=== PATIENT | female | born 1990 | race Caucasian/White ===

== ENCOUNTER 2024-04-27 08:37 | Outpatient (REF) | payer OTHER, SELFPAY | END 2024-04-27 08:38 | disposition home or self-care (01) | LOC: HO.HOSX 08:37 | PROVIDERS: Visit Provider Physician Assistant | DX: Z13.89 Encounter for screening for other disorder (principal) ==

== ENCOUNTER 2024-05-23 08:10 | Outpatient (REF) | payer OTHER, SELFPAY ==
--- OUTSIDE RECORDS SUMMARY | 2024-05-24 08:13 | XMS_ITS | Clinical Summary ---
Author Organization [address] [place] [address] Address [address] [place] [address] Phone Care Team Providers Care Shuttle Inspector Name Role Phone Chris Lindsey MD Primary Care Provider [phone] Allergies Active Allergy Reactions Criticality Noted Date Comments Latex 04/29/2024 Sulfa (Sulfonamide Antibiotics) 04/20 Medications Hospital, Clinic, or Other Facility Administered Medication Ordered Dose Route Frequency Start Date End Date Status lidocaine (PF) (XYLOCAINE-MPF) 1 % injection 0.5 mLIndications:Planta r fasciitis .5 mL inj Once PRN Procedure 04/29/2024 04/29/2024 Ended triamcinolone acetonide (KENALOG-40) 40 mg/mL injection 40 mgIndications:Planta r fasciitis 40 mg IAtc Once PRN Procedure 04/29/2024 04/29/2024 Ended Encounters Date Type Department Care Team Description 04/29/2024 11:00 AM EST Consult Orthopedic Surgery - [place] [address] [place] [phone] Earnest Leung DPM Pain in both feet (Primary Dx); Pes planus of both feet; Equinus contracture of left ankle; Plantar fasciitis from Last 3 Months Social History Tobacco Use Types Packs/Day Years Used Date Smoking Tobacco: Never Assessed Sex and Gender Information Value Date Recorded Sex Assigned at Not on file Gender Identity Not on file Sexual Orientation Not on file Job Start Date Occupation Industry Not on file Not on file Not on file Last Filed Vital Signs Vital Sign Reading Time Taken Comments Blood Pressure - - Pulse - - Temperature - - Respiratory Rate - - Oxygen Saturation - - Inhaled Oxygen Concentration - - Weight 102 kg (225 lb) 04/29/2024 11:06 AM EST Height 154.9 cm (5' 1 ) 04/29/2024 11:06 AM EST Body Mass Index 42.51 04/29/2024 11:06 AM EST Plan of Treatment Health Maintenance Due Date Last Done Comments DTaP,Tdap,and Td Vaccines (1 - Tdap) 07/23/2010 Hepatitis B Vaccines (1 of 3 - 19+ 3-dose series) 07/23/2010 Cervical Cancer Screening: P ap Smear 07/23/2012 COVID-19 Vaccine ( - 2023-2 5 season) 2023 Influenza Vaccine (#1) 2023 Depression Screening 04/04/2024 HIV Screening 04/04/2024 Hepatitis C Screening 04/04/2024 Social Influencers of Health Screening 04/04/2024 HIB Vaccines Aged Out No longer eligi ble based on patient's age to complete this topic HPV Vaccines Aged Out No longer eligi ble based on patient's age to complete this topic Hepatitis A Vaccines Aged Out No long er eligible based on patient's age to complete this topic IPV Vaccines Aged Out No longer eligi ble based on patient's age to complete this topic MMR Vaccines Aged Out No longer eligi ble based on patient's age to complete this topic Meningococcal ACWY Vaccine Aged Out N o longer eligible based on patient's age to complete this topic Pneumococcal Vaccine: Pediat rics (0 to 5 Years) and At-Risk Patients (6 to 64 Years) Aged Out No longer eligible b ased on patient's age to complete this topic RSV Immunization Patients Un thomas 20 months Aged Out No longer eligible b ased on patient's age to complete this topic Varicella Vaccines Aged Out No longer eligible based on patient's age to complete this topic Procedures Procedure Name Priority Date/Time Associated Diagnosis Comments INJECTION TENDON OR LIGAMENT Routine 04/29/2024 11:00 AM EST Plantar fasciitis from Last 3 Months Results * Injection tendon or ligament (04/29/2024 11:00 AM EST) Narrative Earnest Leung DPM - 04/29/2024 11:00 AM EST Earnest Leung DPM ? 04/29/2024 ??6:33 PM Injection tendon or ligament Indications: pain Details: 25 G needle Medications: 0.5 mL lidocaine (PF) 1 %; 40 mg triamcinolone acetonide 40 mg/mL Informed Consent: ??Laterality: ??Bilateral Earnest Leung DPM IN CLINIC/BEDSIDE O RDERABLES from Last 3 Months Care Teams Shuttle Inspector Relationship Specialty Start Date End Date Chris Lindsey MD [address] [place] [address] Dr Coleen [place] PCP - General Family Medicine 04/04/24
--- OUTSIDE RECORDS SUMMARY | 2024-05-24 08:13 | XMS_ITS | Data Portability ---
Author Organization YOLIE Peng s, [address] Address [address] [place] [address] Assessment No assessment recorded. Plan of Treatment Reminders Order Date Submit Date Provider Last Modified By Organization Details Last Modified Time Details Appointments None recorded. Lab rapid strep group A, throat 2022 023 [email or web address] [facility], [address] [place] [address], [phone], 3 12:35:14 rapid strep group A, throat 2022 023 [email or web address] 247 _[facility], [address] [place] [address], [phone], 3 11:42:27 streptococc us group A, culture, throat [address] [facility], [address] [place] [address], [place], [address], 3 08:09:20 Referral None recorded. Procedures None recorded. Surgeries None recorded. Imaging None recorded. Medication Orders prednisone 10 mg tablet 2022 023 [email or web address] [facility] #[id number], [address] [place] [address], [id number], 3 10:34:21 ProAir HFA 90 mcg/actuati on aerosol inhaler 2022 023 [facility], [address] [place], [place], [id number], 3 12:35:28 amoxicillin 500 mg capsule 2022 023 [email or web address] [facility] #72860, [address] [place], [place], [id number], 3 10:34:26 prednisone 20 mg tablet 2022 023 YFN [facility] #37338, [address], [place], [id number], 3 11:44:14 Patient TargetsNo targets recorded. Patient Instructions Encounter Date Encounter Id Patient Instructions Last Modified By Organization Details Last Modified Time 05/27/2022 [id number] Acute bronchitis is a common clinical condition characterized by an acute onset but persistent cough, with or without sputum production. It is typically self-limited, resolving within one to three weeks. Symptoms result from inflammation of the lower respiratory tract and are most frequently due to viral infection. Treatment is focused on patient education and supportive care. Antibiotics are not needed for the great majority of patients with acute bronchitis but are greatly overused for this condition. Reducing antibiotic use for acute bronchitis is a national and international health care priority. In most patients, the cough persists for 1 to 3 weeks, with a average duration of 18 days. The cough may be associated with either purulent or nonpurulent sputum production The presence of purulent sputum is a nonspecific finding and does not appear to be predictive of bacterial infection or that antibiotics are needed. For the great majority of patients, use of antibiotics does not hasten recovery or prevent complications but puts patients at increased risk of adverse effects including potentially severe complications such as Clostridioides difficile infection and anaphylaxis. Non-Pharmacological treatment for coughin. Throat lozenges 2. Hot tea 3. Honey 4. Smoking cessation 5. Avoidance of secondhand smoke. Pharmacological Treatment: 1. Robatussin or Guafenasin 2. Antihistamines 3. Dextromethoraphen I would plan on being seen again if any of the following symptoms develop: 1. Fever (100.5) 2. Shortness of breath 3. Wheezing 4. Worsening Cough. I would go to the ER if you develop: 1. Severe Shortness of breath 2. Chest Pain 3. Wheezing 4. Coughing up Blood [email or web address] Not available 05/27/2022 12:35:13 09/28/2022 [id number] sore throat: car e instructions [email or web address] Not available 09/28/2022 11:42:28 Reason for Referral None Reported. Results Created Date Observation Date Name Description Value Unit Range Abnormal Flag Note LastModifiedBy Organization Detail LastModifiedTime 05/27/1905/27/2022 rapid strep group A, throa t Unknown Analyte Normal = Negati ve Not Available [address] [place], [place] [address] [place], [phone], 05/27/2022 12:09:08 05/27/1905/27/2022 rapid strep group A, throa t Unknown Analyte negati ve Not Available [address] [place], [place] [address], [address], 05/27/2022 12:09:08 09/29/19 23 10/01/2022 BETA STREP GP A CULTU RE beta strep gp A culture NEGATI VE Refer ence Range : Negat connor Not Available [facility] ([facility]) [address] [facility], [place], [address], 10/01/2022 08:09:19 09/29/19 23 09/28/2022 rapid strep group A, throa t Unknown Analyte negati ve Not Available [address] [place] [address], [phone], 09/28/2022 10:35:09 09/29/19 23 09/28/2022 rapid strep group A, throa t Unknown Analyte Normal = Negati ve Not Available [address] [place], [place] [address], [address], 09/28/2022 10:35:09 Result Notes None recorded. Problems Name Problem SNOMED Code Status Onset Date Resolution Date Notes Provider Name and Address Organization Details Recorded Time Gastroesophage al reflux disease 850920296 Active 2022 YOLIE Adler [facility] 3 12:11:29 Problem Notes None recorded. Medical Equipment None Reported. Allergies Allergen ID Allergen Name Allergen Category Reaction Reaction Severity Criticality Documentation Date Start Date Code Code System Note Provider Name and Address Organization Details Recorded Time 755343 Substance with sulfonami de structure and antibacte rial mechanism of action (substanc e) medicatio n Not available Not available Not available 05/27/2022 93404 8003 SNOMED unkno wn react ion YOLEI Adler [facility] 3 12:10:08 681225 latex environme nt,medica tion rash Not available Not available 05/27/2022 61085 91 RxNorm YOLIE Adler [facility] 3 12:10:19 Medications Name Sig Start Date Stop Date Status Note LastModified by Organization Details LastModified Time amoxicillin 500 mg capsule TAKE 1 CAPSULE BY MOUTH THREE TIMES DAILY FOR 10 DAYS 09/28 completed Not Available Not Available Not Available prednisone 10 mg tablet TAKE 3 TABLETS BY MOUTH EVERY DAY FOR 2 DAYS THEN TAKE 2 TABLETS BY MOUTH EVERY DAY FOR 2 DAYS THEN TAKE 1 TABLET BY MOUTH EVERY DAY FOR 2 DAYS 09/28 completed Not Available Not Available Not Available benzonatate 200 mg capsule TAKE 1 CAPSULE BY MOUTH THREE TIMES DAILY FOR 7 DAYS NEEDED FOR COUGH 05/27 completed Not Available Not Available Not Available prednisone 20 mg tablet Take 3 tablets every day by oral route for 5 days. 2022 active Not Available Not Available Not Avai lable aspirin 81 mg tablet,chelsey yed release TAKE 2 TABLETS BY MOUTH DAILY 09/28 completed Not Available Not Available Not Available famotidine 20 mg tablet TAKE 1 TABLET BY MOUTH TWICE DAILY 09/28 completed Not Available Not Available Not Available Proventil HFA 90 mcg/actuati on aerosol inhaler INHALE 2 PUFFS BY MOUTH EVERY 4 HOURS active Not Available Not Available No t Available ondansetron 4 mg disintegrat ing tablet DISSOLVE 1 TABLET ON THE TONGUE EVERY 8 HOURS FOR 3 DAYS NEEDED FOR NAUSEA OR VOMITING 05/27 completed Not Available Not Available Not Available fluticasone propionate 50 mcg/actuati on nasal spray,suspe nsion SHAKE LIQUID AND USE 1 SPRAY IN EACH NOSTRIL TWICE DAILY FOR ALLERGY SYMPTOMS 05/27 completed Not Available Not Available Not Available BinaxNOW COVID-19 Ag Self Test kit TEST DIRECTED TODAY 05/27 completed Not Available Not Available Not Available Vitals Date Recorded Body height Body mass index (BMI) Body weight Pain severity Huerta-Augustin FACES pain rating scale Respiratory rate Oxygen saturation Oxygen saturation in Arterial blood by Pulse oximetry Heart rate Body temperature Systolic blood pressure Diastolic blood pressure Provider Name and Address Organization Details Last Updated DateTime 3 152.4 cm 39.1 kg/m2 79817.4 7 g 8 17 /min 100 % 100 % 78 /min 98.3 [degF] 129 mm[Hg] 86 mm[Hg] RUBI CASEY [facility] 3 10:36:40 Date Recorded Body height Body mass index (BMI) Body weight Pain severity - 0-10 verbal numeric rating [Score] - Reported Respiratory rate Oxygen saturation Oxygen saturation in Arterial blood by Pulse oximetry Heart rate Body temperature Systolic blood pressure Diastolic blood pressure Provider Name and Address Organization Details Last Updated DateTime 3 152.4 cm 40 kg/m2 05093.4 4 g 8 20 /min 97 % 97 % 98 /min 97.5 [degF] 135 mm[Hg] 73 mm[Hg] RUBI CASEY [facility] 3 12:14:09 Social History Question Answer Notes LastModified by Organizat ion Details LastModified Time Tobacco Smoking Status Current Every Day Smoker RUBI macdonald [place] [facility] 05/27/2022 12:11:55 What Is Your Level Of Alcohol Consumption? None Information not available 05/27/2022 Which Illicit Or Recreational Drugs Have You Used? Marijuana [email or web address] Information not available 09/28/2022 How Much Tobacco Do You Smoke? 0.25 PPD [email or web address] Information not available 05/27/2022 Do You Use Any Illicit Or Recreational Drugs? Yes [email or web address] Information not available 09/28/2022 Have You Recently Traveled Abroad? No [email or web address] Information not available 05/27/2022 Do You Or Have You Ever Used Any Other Forms Of Tobacco Or Nicotine? No [email or web address] Information not available 05/27/2022 Sex: Unknown Functional Status None recorded. Mental Status None recorded. Family History Relationship Description Onset Age of this Age Resolved Age Notes LastModified by Organization Details LastModified Time Father No current problems or disability [email or web address] Not available 05/27 12:11:31 Mother No current problems or disability [email or web address] Not available 05/27 12:11:31 Medical History No medical history recorded. Gynecological History Statement/Question Response Date of LMP Is there any chance of ? No Obstetrics History GPAL:G 0 P 0 0 0 0 Past Encounters Encounter ID Performer Location Encounter Start Date Encounter Closed Date Diagnosis/Indication Diagnosis SNOMED-CT Code Diagnosis ICD10 Code Diagnosis Note [id number] [address] [place] [address] 04/03/2021 14:32:32 04/03/2021 16:49:30 [id number] [address] [address] [place] [address] 10/01/2021 13:00:01 10/01/2021 16:46:34 [id number] [address] [place] [address] 09/20/2020 18:06:16 09/20/2020 19:49:44 [id number] [address] [place] [address] 04/20/2021 13:01:43 04/20/2021 14:17:30 [id number] [address] [place] [address] 09/28/2020 09:25:23 09/28/2020 10:50:45 [id number] [address] [place] [address] 07/10/2020 18:01:41 07/10/2020 18:42:10 [id number] [address] [place] [address] 01/14/2021 08:13:15 01/14/2021 09:49:55 [id number] YOLIE GUADALUPE [address] [place] [address] 05/27/2022 12:03:04 05/27/2022 12:37:33 Acute pharyngitis 691389445 J02.9 Laryngitis 88379630 J04. 0 Wheezing [id number] R06.2 [id number] ANAYA CARLSON MD [address] [place] [address] 09/28/2022 09:31:53 09/28/2022 11:49:39 Sore throat 000686732 J02.9 Sore throatClea r liquids for comfortFre sh Carla Root Tea-Cut up fresh carla root and boil it till fragrant. drink the liquid as a tea. Can add Honey to taste. Also For Sore Throat:Thr oat Comfort Tea (by [employer])Thro at Coat Tea ( by [employer] ) Clear broth soup: Vegetable, Chicken or Beef as tolerated. Salt Water GarglesMix 1 teaspoonfu l of salt in a glass of warm water. Gargle and spit out the salt water mixture one mouthful at a time until the glass is empty. Repeat 4 times daily. Acute laryngitis 3418905 J04.0 Health Concerns Section Related Observation LastModified by Organization Detai ls LastModified Time None Recorded Concern Status LastModified by Organization Details LastModified Time None Recorded Advance Directives Directive None Recorded Payers Encounter Date Sequence Insurance Name Policy Number Policy [place] Covered Member ID [place] Member ID Guarantor Name 04/03/[address] [facility] [id number] Hannah Colatriano [id number] Hannah Colatriano 04/20/[address] [facility] [id number] Hannah Colatriano [id number] Hannah Colatriano 10/01/[address] [facility] [id number] Hannah Colatriano [id number] Hannah Colatriano 05/27/[address] [facility]ICA[facility] [id number] Hannah Colfernandoiano [id number] Hannah Colatriano 09/28/[address] [place] [address] - [facility] (MEDICAID HMO) [id number] Hannah Colfernandoiano [id number] Hannah Quickiano Notes Date Note Type Note Provider Name and Address Organization Details Recorded Time 3 text/html Sore throatReported bypatient.Source of patient informationInformation obtained from patient; Patient arrived at Urgent Care ambulatory Location:throat; chest Severity:moderate Quality:dull Onset/Timing:days; 2 weeks Associated Symptoms:no sputum production; no shortness of breath; no sinus pain; no vomiting; no nausea;sore throat;hoarseness;coughing Context:no sick contactsNotes:The patient is 2 weeks of congestion and sore throat. started coughing violently last few days. Vomited today due to the cough. The patient denies any history of asthma. No shortness of breath. no chest pain. YOLIE GUADALUPE [address] [place], [address], [employer] [facility] 05/27/2022 12:47:52 3 text/html 32 yo female presents with 4day hx of sore throat with no relief from ibuprofen, She has 4 sons ages 9y, 8y, 2y, and 2mos old. All with various stages of URIs over the last 2 months. None testing positive for Strep recently. ANAYA CARLSON MD [address] [place], [address], [place] Code42 [facility] 10/07/2022 19:17:50 OBGyn Episode No OBEpisode recorded.
--- OUTSIDE RECORDS SUMMARY | 2024-05-24 08:13 | XMS_ITS | Encounter Summary ---
[facility] Address [id number] [place] [id number] Care Team Providers Care Health Care Sanitary Technician Name Role Phone Chris Lindsey MD Primary Care Provider [phone] Reason for Visit * Reason Comments Foot Pain Transportation Assistant-PLANTAR FASCITIS Encounter Details Date Type Department Care Team (Late st Contact Info) Description 04/29/2024 11:00 AM EST Consult Orthopedic Surgery - [place] [id number] [id number] Earnest Leung DPM [address] [address] Pain in both feet (Primary Dx); Pes planus of both feet; Equinus contracture of left ankle; Plantar fasciitis Social History Tobacco Use Types Packs/Day Years Used Date Smoking Tobacco: Never Assessed Sex and Gender Information Value Date Recorded Sex Assigned at Not on file Gender Identity Not on file Sexual Orientation Not on file Job Start Date Occupation Industry Not on file Not on file Not on file documented as of this encounter Last Filed Vital Signs Vital Sign Reading Time Taken Comments Blood Pressure - - Pulse - - Temperature - - Respiratory Rate - - Oxygen Saturation - - Inhaled Oxygen Concentration - - Weight 102 kg (225 lb) 04/29/2024 11:06 AM EST Height 154.9 cm (5' 1 ) 04/29/2024 11:06 AM EST Body Mass Index 42.51 04/29/2024 11:06 AM EST documented in this encounter Progress Notes * Earnest Leung DPM - 04/29/2024 11:00 AM ESTAssociated Order(s): Injection tendon or ligament Post-Procedure Diagnose(s): Plantar fasciitis IDENTIFIER: @TITLE@ Evonne is a 33 y.o. year old female who presents for consultation. CC: Bilateral foot pain HPI: Patient presents today with complaints of heel pain. Patient states that the pain is worse with thefirst step in the morning or after they have been sitting for long periods of time. Patient denies any injury or accidents. Patient cannot recall any inciting events. Patient states that resting or sitting there is no pain, only while weightbearing. Patient has tried over the counter inserts with no improvement. Patient here for evaluation and treatment. ROS: GENERAL: Pt denies nausea, fever, vomiting, chills, or shortness of breath. Pt in NAD. CARDIOLOGY: pt denies chest pain, palpitations LUNGS: pt denies shortness of breath MUSCULOSKELETAL: See HPI, otherwise no joint pain or swelling, back pain, or muscle pain. SKIN: see HPI, otherwise no lesions, rash or itching NEURO: No persistent headache, weakness or numbness The remainder of the review of systems is noncontributory PAST MEDICAL HISTORY: There is no problem list on file for this patient. SOCIAL HISTORY: Social History Tobacco Use Smoking status: Not on file Smokeless tobacco: Not on file Substance Use Topics Alcohol use: Not on file ACTIVE MEDICATIONS: No outpatient medications have been marked as taking for the 04/29/24 encounter (Consult) with Earnest Leung DPM. ALLERGIES: @ALL@ PHYSICAL EXAM: Height 1.549 m (61 ), weight 102 kg (225 lb). PODIATRIC EXAMINATION: GENERAL: Patient appears well nourished, with NAD. VASCULAR: Dorsalis pedis pulses are 2/4 bilaterally and Posterior tibial pulses are 2/4 bilaterally. Capillary filling time within normal limits the digits. No pallor on elevation or rubor on dependency. Positive hair growth. No varicosities. Denies rest pain or claudication pain. NEUROLOGICAL: Sharp/dull sensation intact, protective sensation intact 10/10 with 5.07 semmes wilma bilaterally, vibratory sensation with tuning fork intact to the tibial tuberosity. ORTHOPEDIC: Good muscle strength 5/5 of all flexors and extensors. Dorsi flexion of ankle ,10 degrees, plantar flexion WNL. No muscle atrophy. Notable posterior equinus bilateral lower extremities. Increased arch height with collapsibility on stance. Pain swelling around the medial tubercle of the heels bilaterally. Increased pain on the patient. DERMATOLOGICAL:.No masses or skin lesions noted. Normal skin temperature, normal skin turgor. BIOMECHANICS: STJ ROM wnl, MTJ ROM wnl, 1st MPJ ROM wnl. IMPRESSION: 1. Pain in both feet 2. Pes planus of both feet 3. Equinus contracture of left ankle 4. Plantar fasciitis PLAN: Pt was seen and examined, history reviewed. Patient also has findings of pes planus bilaterally which with a collapsing midfoot due to flexibility Patient's shoes were evaluated and handout was given explaining correct shoe gear that would help in supporting the midfoot Orthotic suggestions were given and the specific model was handed to the patient to be purchased Break-in period was defined and patient was educated on as there can be increased pain in the process of getting used to an orthotic in her shoe Biomechanics were reviewed with patient and how this flexible flatfoot deformity is affecting her ability to walk and causing increased strain on other joints of the foot Patient showed verbal and adequate understanding Patient with findings of bilateral posterior equinus Patients contracture is directly along the tendon's insertion. Patient at this time would benefit from resting the tendon. Patient would also benefit from calming down the flare with the use of anti- inflammatories. Patientis to take the anti-inflammatories daily with food. Patient to start an aggressive stretching regimen. Patient understands that this will lessen the pull needed from the posterior group. Will re-evaluate at next visit. If no improvement, will consider physical therapy versus bracing. Patient being treated for bilateral plantar fasciitis Conservative treatment options discussed and the decision made to try an corticosteroid injection today. Risks and benefits explained to patient. Injection to the area was performed after written consent was obtained. Risks and benefits discussed in detail with patient and include but are not limited to risk of infection risk of recurrence risk of steroid flare. Injection given to the right and left heel of half cc 1% lidocaine half cc of Kenalog 40 Patient understands that the first three days status post injection, the site may feel sore. Patient is to ice and elevate during this time. Patient understands that the injection is to decrease inflammation and reduce flares. Patient understands that it is variable how long the injection lasts. All questions answered. Injection tendon or ligament Indications: pain Details: 25 G needle Medications: 0.5 mL lidocaine (PF) 1 %; 40 mg triamcinolone acetonide 40 mg/mL Informed Consent: Laterality: Bilateral Earnest Leung DPM documented in this encounter Plan of Treatment Not on file documented as of this encounter Procedures Procedure Name Priority Date/Time Associated Diagnosis Comments INJECTION TENDON OR LIGAMENT Routine 04/29/2024 11:00 AM EST Plantar fasciitis documented in this encounter Results * Injection tendon or ligament (04/29/2024 11:00 AM EST) Narrative Earnest Leung DPM - 04/29/2024 11:00 AM EST Earnest Leung DPM ? 04/29/2024 ??6:33 PM Injection tendon or ligament Indications: pain Details: 25 G needle Medications: 0.5 mL lidocaine (PF) 1 %; 40 mg triamcinolone acetonide 40 mg/mL Informed Consent: ??Laterality: ??Bilateral Earnest Leung DPM IN CLINIC/BEDSIDE O RDERABLES documented in this encounter Visit Diagnoses Diagnosis Pain in both feet- Primary Pes planus of both feet Equinus contracture of left ankle Plantar fasciitis Plantar fascial fibromatosis documented in this encounter Administered Medications Inactive Administered Medications - up to 3 most recent administrations Medication Order MAR Action Action Date Dose Rate Site lidocaine (PF) (XYLOCAINE-MPF) 1 % injection 0.5 mL 0.5 mL, injection, Once PRN Procedure, Starting on Thu04/29/24 at 1100, For 1 dose Given 04/29/2024 11:00 AM EST 0.5 mL triamcinolone acetonide (KENALOG-40) 40 mg/mL injection 40 mg 40 mg, intra-articular, Once PRN Procedure, Starting on Thu04/29/24 at 1100, For 1 dose Given 04/29/2024 11:00 AM EST 40 mg documented in this encounter Care Teams Health Care Sanitary Technician Relationship Specialty Start Date End Date Chris Lindsey MD [address] [place] [address] Dr Coleen MA PCP - General Family Medicine 04/04/24 documented as of this encounter
== END 2024-05-23 08:11 | disposition home or self-care (01) ==
LOC: HO.HOSX 08:10
PROVIDERS: Visit Provider Physician Assistant
DX: Z13.89 Encounter for screening for other disorder (principal)

== ENCOUNTER 2024-06-20 08:22 | Outpatient (REF) | payer OTHER, SELFPAY ==
--- NOTE | ~2024-06-20 | XR_ITS ---
EXAMINATION: XR SHOULDER 2 OR MORE VIEWS RIGHT HISTORY: M25.511 - Pain in right shoulder COMPARISON: There are no prior studies available for comparison. FINDINGS: Three views of the right shoulder are submitted. Osseous mineralization is normal. There is no fracture or dislocation. The joint spaces are preserved. The soft tissues are unremarkable. XR/XR shoulder RT min 2V IMPRESSION: Unremarkable examination of the right shoulder. Electronically signed by: Ryan Jessica MD 06/20/2024 10:16 AM LEA TSE
--- OUTSIDE RECORDS SUMMARY | 2024-06-20 08:38 | XMS_ITS | Clinical Summary ---
Author Organization 175 [facility] Address [address] [place] [address] Phone Care Team Providers Care Assistant Clinical Nurse Manager Name Role Phone Chris Lindsey MD Primary Care Provider [phone] Allergies Active Allergy Reactions Criticality Noted Date Comments Latex 04/29/2024 Sulfa (Sulfonamide Antibiotics) 04/20 Encounters Date Type Department Care Team Description 04/29/2024 11:00 AM EST Consult Orthopedic Surgery [facility] [address] [address] Earnest Leung DPM Pain in both feet (Primary Dx); Pes planus of both feet; Equinus contracture of left ankle; Plantar fasciitis from Last 3 Months Social History Tobacco Use Types Packs/Day Years Used Date Smoking Tobacco: Never Assessed Comments Unknown Sex and Gender Information Value Date Recorded Sex Assigned at Not on file Legal Sex Female 12:10 PM EST Gender Identity Not on file Sexual Orientation Not on file Last Filed Vital Signs [...] patient's age to complete this topic Meningococcal B Vacine Aged Out No lo nger eligible based on patient's age to complete [...] acetonide 40 mg/mL Informed Consent: ??Laterality: ??Bilateral us Earnest Leung DPM IN CLINIC/BEDSIDE ORDERABLE S Final Result from Last 3 Months Insurance [facility] [employer] Care Teams Assistant Clinical Nurse Manager Relationship Specialty Start Date End Date Chris Lindsey MD [address] [place] [address] Dr Coleen MA PCP - General Family Medicine 04/04/24
== END 2024-06-20 08:23 | disposition home or self-care (01) ==
LOC: HO.HOSX 08:22
PROVIDERS: Visit Provider Physician Assistant
DX: M25.511 Pain in right shoulder (principal); M75.21 Bicipital tendinitis, right shoulder; M19.011 Primary osteoarthritis, right shoulder
CPT/HCPCS: 73030; 99202

== ENCOUNTER → 2024-06-20 09:37 | Outpatient (BNV) | payer OTHER, SELFPAY | PROVIDERS: Visit Provider Radiology Diagnostic Radiology | DX: M25.511 Pain in right shoulder (principal) | CPT/HCPCS: 73030 ==

== ENCOUNTER 2024-08-09 09:23 | Outpatient (AMB) | payer OTHER, SELFPAY ==
--- NOTE | 2024-08-09 09:28 | MHC.OFFWIV ---
Intake Vital Signs 08/09/24 09:37 Weight 218 lb 2 oz BP 130/80 Blood Pressure Location Lt brachial Position Sitting Pulse 98 Pulse Source Pulse Oximeter Temp 98.1 F Temp Source Oral Pulse Oximetry (%) 98 Oxygen Delivery Method Room Air Intake Visit Reasons: EP ear/throat pain Intake Note: Patient here for sore throat and ear pain, mainly on right side. Patient Tobacco Use Status: Current everyday Tobacco user Allergies Sulfa (Sulfonamide Antibiotics) [SULFA (SULFONAMIDE ANTIBIOTICS)] Allergy (Mild, Unverified 08/09/24 09:38) UNKNOWN latex [LATEX] Allergy (Unknown, Unverified 08/09/24 09:38) UNKNOWN Do you need a note to return to daycare/school/sports/work: No HPI HPI Comments History of Present Illness Details This is a 34-year-old female with a past medical history of gastroesophageal reflux disease, seasonal allergies, anxiety and depression presenting for evaluation of right ear pain and sore throat that she has had for the past 2 days. Patient denies having any fevers or chills but has had sinus congestion. She has not taken any medication for treatment of her discomfort. [facility] Medical History (Updated 08/09/24 @ 09:57 by Dang Quiroz PA-C) Panic attacks Depression Anxiety Eczema GERD (gastroesophageal reflux disease) Arthritis Surgical History (System 07/06/24 @ 12:41 by Yaquelin Irizarry) Hx of tonsillectomy Family History (System 07/06/24 @ 12:41 by Yaquelin Irizarry) Father HTN (hypertension) Paternal Grandmother Diabetes Cardiovascular disease Clotting disorder HTN (hypertension) Social History (System 07/06/24 @ 12:41 by Yaquelin Irizarry) Housing: Condominium Patient Tobacco Use Status: Current everyday Tobacco user Cigarettes Per Day: 7 Years Smoked: 16 e-Cigarette/Vaping Use: Never Used Second Hand Smoke Exposure: No service: No Current occupational status: employed 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 Current occupational exposures/hazards: No Cognitive needs: No Hearing needs: No Vision needs: No Review of Systems Const All systems reviewed & are unremarkable except as noted in HPI and below Denies chills, Denies fatigue and Denies fever(s) Eyes Reports no additional complaints ENT Reports otalgia (right), Reports nasal congestion and Reports sore throat Card Reports no additional complaints and Denies dyspnea Resp Denies cough and Denies dyspnea GI Reports no additional complaints Musc Reports no additional complaints Skin/Breast Reports system reviewed and no additional complaints, except as documented Neuro Reports no additional complaints Psych Reports no additional complaints Endo Reports no additional complaints and Denies fatigue Jose/Lymph Reports no additional complaints Aller/Immun Reports no additional complaints Physical Exam Vital Signs: Last Vital Signs Temp 98.1 F 08/09/24 09:37 Pulse 98 08/09/24 09:37 BP 130/80 08/09/24 09:37 Pulse Ox 98 08/09/24 09:37 Oxygen Delivery Method Room Air 08/09/24 09:37 Patient is afebrile Const General: cooperative, healthy appearing, comfortable, no acute distress, well developed, alert, awake and Physically active; No ill appearing Nutritional Appearance: well nourished Orientation/consciousness: patient oriented x3 Limitations: no limitations HEENT Head: Yes normal to inspection and Yes normocephalic Ears: hearing grossly normal bilaterally, external ears normal, right TM abnormal (erythema without bulging of TM), TM normal on the left and EAC's normal General nose exam: Normal external nose present Face and sinus: Yes normal facial exam Mouth: Normal oral and palatal mucosa present and moist mucous membranes Teeth and gingiva: dentition normal Throat: Yes posterior oropharynx normal and Yes posterior oropharynx abnormal Eyes General: appearance normal, both eyes and all related structures Neck Lymphatic: lymphadenopathy not noted Resp Effort & Inspection: normal respiratory effort and able to speak in complete sentences Auscultation: clear to auscultation bilaterally Cardio Rate: regular rate Rhythm: regular rhythm Skin General skin exam: no rashes or lesions noted Neuro General: patient oriented x3 Psych Appearance: grossly normal Mental Status: mental status grossly normal Insight: Good insight present (Psych) Judgement: Good judgement present (Psych) Results AMB Rapid Strep AMB Rapid Strep Negative Last Edit by LUZ MARIA Couch on 08/09/24 09:44 Assessment & Plan Assessment & Plan (1) Otitis media of right ear: Comment: Patient's rapid strep test is negative. Patient will be treated with amoxicillin for management of her right otitis media. Code(s): H66.91 - Otitis media, unspecified, right ear Qualifiers: Otitis media type: unspecified Qualified Code(s): H66.91 - Otitis media, unspecified, right ear Plan: Amoxicillin t.i.d. x7 days, ibuprofen or Tylenol as needed. Orders: Orders AMB Rapid Strep Screen Today Z13.9 - Encounter for screening, unspecified Medications: New amoxicillin 500 mg PO TID 21 caps 0RF Coding Level of Care Code Est Pt Level 3 (14595) Diagnoses Right otitis media, unspecified otitis media type H66.91 Otitis media type: unspecified Time Spent (min) 20
[2024-08-09 09:37] VITALS: BP 130/80; PULSE 98; TEMP 36.7; O2SAT 98
--- OUTSIDE RECORDS SUMMARY | 2024-08-09 10:08 | XMS_ITS | Data Portability ---
Author Organization YOLIE Peng s, [address] Address [address] [place] [address] Assessment No assessment recorded. Plan of Treatment Reminders Order Date Submit Date Provider Last Modified By Organization Details Last Modified Time Details Appointments None recorded. Lab rapid strep group A, throat 2022 023 [email or web address] 247 [facility], [address] [place] [address], [phone], 3 11:42:27 streptococc us group A, culture, throat 2022 023 [place] [facility], [address] [place] [address], [place], [address], 3 08:09:20 rapid strep group A, throat 2022 023 [email or web address] [facility], [address] [place] [address], [phone], 3 12:35:14 Referral None recorded. Procedures None recorded. Surgeries None recorded. Imaging None recorded. Medication Orders prednisone 20 mg tablet 2022 023 [facility], [address] [place] [address], [id number], 3 11:44:14 prednisone 10 mg tablet 2022 023 [email or web address] [facility]25531, [address] [place] [address], [id number], 3 10:34:21 ProAir HFA 90 mcg/actuati on aerosol inhaler 2022 023 YFN [facility] #98523, [address], [place], [id number], 3 12:35:28 amoxicillin 500 mg capsule 2022 023 [email or web address] [facility] #34235, [address], [place], [id number], 3 10:34:26 Patient TargetsNo targets recorded. Patient Instructions Encounter Date Encounter Id Patient Instructions Last Modified By Organization Details Last Modified Time 05/27/2022 [id number] Acute bronchitis is a common clinical condition [...] Pain 3. Wheezing 4. Coughing up Blood [email or web address] Not available 05/27/2022 12:35:13 09/28/2022 [id number] sore throat: car e instructions [email or web address] Not available 09/28/2022 11:42:28 Reason for Referral None Reported. Results Created Date Observation Date Name Description Value Unit Range Abnormal Flag Note LastModifiedBy Organization Detail LastModifiedTime 05/27/1905/27/2022 rapid strep group A, throa t Unknown Analyte Normal = Negati ve Not Available [address] [place], [place] [address] [place], [address], 05/27/2022 12:09:08 05/27/1905/27/2022 rapid strep group A, throa t Unknown Analyte negati ve Not Available [address] [place] [address], [place], [address], 05/27/2022 12:09:08 09/29/19 23 10/01/2022 BETA STREP GP A CULTU RE beta strep gp A culture NEGATI VE Refer ence Range : Negat connor Not Available [facility] ([facility]) [address] [facility], [place], [address], 10/01/2022 08:09:19 09/29/19 23 09/28/2022 rapid strep group A, throa t Unknown Analyte negati ve Not Available [address] [place] [address], [phone], 09/28/2022 10:35:09 09/29/19 23 09/28/2022 rapid strep group A, throa t Unknown Analyte Normal = Negati ve Not Available [address] [place], [place] [address], [address], 09/28/2022 10:35:09 Result Notes None recorded. Problems Name Problem SNOMED Code Status Onset Date Resolution Date Notes Provider Name and Address Organization Details Recorded Time Gastroesophage al reflux disease 612138937 Active 2022 YOLIE Adler [facility] 3 12:11:29 Problem Notes None recorded. Medical Equipment None Reported. Allergies Allergen ID Allergen Name Allergen Category Reaction Reaction Severity Criticality Documentation Date Start Date Code Code System Note Provider Name and Address Organization Details Recorded Time 154814 Substance with sulfonami de structure and antibacte rial mechanism of action (substanc e) medicatio n Not available Not available Not available 05/27/2022 00049 8003 SNOMED unkno wn react ion YOLIE Adler [facility] 3 12:10:08 023843 latex environme nt,medica tion rash Not available Not available 05/27/2022 04931 91 RxNorm YOLIE Adlre [facility] 3 12:10:19 Medications Name Sig [...] Updated DateTime 3 152.4 cm 39.1 kg/m2 12439.4 7 g 8 17 /min 100 % 100 % 78 /min 98.3 [degF] 129 mm[Hg] 86 mm[Hg] RUBI CASEY [facility] 3 10:36:40 Date Recorded Body height Body mass index (BMI) Body weight Pain severity - 0-10 verbal numeric rating [Score] - Reported Respiratory rate Oxygen saturation Oxygen saturation in Arterial blood by Pulse oximetry Heart rate Body temperature Systolic blood pressure Diastolic blood pressure Provider Name and Address Organization Details Last Updated DateTime 3 152.4 cm 40 kg/m2 04360.4 4 g 8 20 /min 97 % 97 % 98 /min 97.5 [degF] 135 mm[Hg] 73 mm[Hg] RUBI CASEY [facility] 3 12:14:09 Social History Question Answer Notes LastModified by Organizat ion Details LastModified Time Tobacco Smoking Status Current Every Day Smoker RUBI macdonald PA [facility] 05/27/2022 12:11:55 What Is Your Level Of Alcohol Consumption? None [email or web address] Information not available 05/27/2022 Which Illicit Or Recreational Drugs Have You Used? Marijuana [email or web address] Information not available 09/28/2022 How Much Tobacco Do You Smoke? 0.25 PPD [email or web address] Information not available 05/27/2022 Do You Use Any Illicit Or Recreational Drugs? Yes [email or web address] Information not available 09/28/2022 Have You Recently Traveled Abroad? No [email or web address] Information not available 05/27/2022 Do You Or Have You Ever Used Any Other Forms Of Tobacco Or Nicotine? No [email or web address] Information not available 05/27/2022 Sex: Unknown Functional Status None recorded. Mental Status None recorded. Family History Relationship Description Onset Age of this Age Resolved Age Notes LastModified by Organization Details LastModified Time Father No current problems or disability [email or web address] Not available 05/27 12:11:31 Mother No current problems or disability [email or web address] Not available 05/27 12:11:31 Medical History No medical history recorded. Gynecological History Statement/Question Response Date of LMP Is there any chance of ? No Obstetrics History GPAL:G 0 P 0 0 0 0 Past Encounters Encounter ID Performer Location Encounter Start Date Encounter Closed Date Diagnosis/Indication Diagnosis SNOMED-CT Code Diagnosis ICD10 Code Diagnosis Note [id number] [address] [place] [address] 04/03/2021 14:32:32 04/03/2021 16:49:30 [id number] [facility] [address] [place] [address] 10/01/2021 13:00:01 10/01/2021 16:46:34 [id number] [address] [place] [address] 09/20/2020 18:06:16 09/20/2020 19:49:44 [id number] [address] [place] [address] 04/20/2021 13:01:43 04/20/2021 14:17:30 [id number] [address] [place] [address] 09/28/2020 09:25:23 09/28/2020 10:50:45 [id number] [address] [place] [address] 07/10/2020 18:01:41 07/10/2020 18:42:10 [id number] [address] [place] [address] 01/14/2021 08:13:15 01/14/2021 09:49:55 [id number] YOLIE GUADALUPE [address] [place] [address] 05/27/2022 12:03:04 05/27/2022 12:37:33 Acute pharyngitis 576327227 J02.9 Laryngitis 59389019 J04. 0 Wheezing 19927665 R06.2 [id number] ANAYA CARLSON MD [address] [place] [address] 09/28/2022 09:31:53 09/28/2022 11:49:39 Sore throat 441799014 J02.9 Sore throatClea r liquids for comfortFre sh Carla Root Tea-Cut up fresh carla root and boil it till fragrant. drink the liquid as a tea. Can add Honey to taste. Also For Sore Throat:Thr oat Comfort Tea (by [employer])Thro at Coat Tea ( by [employer] ) Clear broth soup: Vegetable, Chicken or Beef as tolerated. Salt Water GarglesMix 1 teaspoonfu l of salt in a glass of warm water. Gargle and spit out the salt water mixture one mouthful at a time until the glass is empty. Repeat 4 times daily. Acute laryngitis 0615481 J04.0 Health Concerns Section Related Observation LastModified by Organization Detai ls LastModified Time None Recorded Concern Status LastModified by Organization Details LastModified Time None Recorded Advance Directives Directive None Recorded Payers Encounter Date Sequence Insurance Name Policy Number Policy [place] Covered Member ID [place] Member ID Guarantor Name 04/03/2021 1 [facility] [id number] Hannah Colatriano [id number] Hannah Colatriano 04/20/2021 1 [facility] [id number] Hannah Colatriano [id number] Hannah Colatriano 10/01/2021 1 [facility] [id number] Hannah Colatriano [id number] Hannah Colatriano 05/27/2022 1 [facility] [id number] Hannah Colfernandoiano [id number] Hannah Colatriano 09/28/[address] [place] [address] - [employer] [facility] - [facility] (MEDICAID HMO) [id number] Hannah Colfernandoiano [id number] Hannah Quickiano Notes Date Note Type Note [...] pain. YOLIE GUADALUPE [address] [place], [address], [employer] [facility] 05/27/2022 12:47:52 3 text/html 32 yo female presents with 4day hx of sore throat with no relief from ibuprofen, She has 4 sons ages 9y, 8y, 2y, and 2mos old. All with various stages of URIs over the last 2 months. None testing positive for Strep recently. ANAYA CARLSON MD [address] [place], [address], [place] [employer] [facility] 10/07/2022 19:17:50 OBGyn Episode No OBEpisode recorded.
--- OUTSIDE RECORDS SUMMARY | 2024-08-09 10:08 | XMS_ITS | Clinical Summary ---
Author Organization [address] [place] [address] Address [address] [place] [address] Phone Care Team Providers Care Fall Internship Name Role Phone Chris Lindsey MD Primary Care Provider Allergies Active Allergy Reactions Criticality Noted Date Comments Latex 04/29/2024 Sulfa (Sulfonamide Antibiotics) 04/20 Social History Tobacco Use Types Packs/Day Years [...] Vaccine ( - 2023-2 5 season) 2023 Depression Screening 04/04/2024 HIV Screening 04/04/2024 Hepatitis C Screening 04/04/2024 Social Influencers of Health Screening 04/04/2024 Influenza Vaccine (Season Ended) 2024 HIB Vaccines Aged Out No longer eligi [...] age to complete this topic Meningococcal B Vaccine Aged Out No l onger eligible based on patient's age to complete [...] on patient's age to complete this topic Insurance PLAN Care Teams Fall Internship Relationship Specialty Start Date End Date Chris Lindsey MD [address] [place] [address] Dr Coleen [place] PCP - General Family Medicine 04/04/24
== END 2024-08-09 11:54 | disposition home or self-care (01) ==
PROVIDERS: PCP Family Medicine; Visit Provider Physician Assistant
DX: Z13.9 Encounter for screening, unspecified (principal); H66.91 Otitis media, unspecified, right ear

== ENCOUNTER → 2024-08-09 09:23 | Outpatient (BNVA) | payer OTHER, SELFPAY | PROVIDERS: PCP Family Medicine; Visit Provider Physician Assistant | DX: H66.91 Otitis media, unspecified, right ear (principal) | CPT/HCPCS: 87880; 99212 ==

== ENCOUNTER 2024-09-28 12:03 | Outpatient (AMB) | payer OTHER, SELFPAY ==
[2024-09-28 12:06] VITALS: BP 122/78; PULSE 95; RESP 20; TEMP 36.8; O2SAT 98; BMI 39.1
--- NOTE | 2024-09-28 12:06 | AM.OFFWIN_ITS ---
Intake Vital Signs 09/28/24 12:06 Height 5 ft 2 in Weight 214 lb BMI 39.1 BP 122/78 Blood Pressure Location Lt brachial Position Sitting Respiration 20 Pulse 95 Pulse Source Pulse Oximeter Temp 98.2 F Temp Source Oral Pulse Oximetry (%) 98 Oxygen Delivery Method Room Air Intake Visit Reasons: EP cough, loss of voice, ear pain Intake Note: Pt is here today for a walk in visit. Pt c/o cough loss of voice and R ear pain since yesterday. Patient Tobacco Use Status: Current everyday Tobacco user Allergies Sulfa (Sulfonamide Antibiotics) [SULFA (SULFONAMIDE ANTIBIOTICS)] Allergy (Mild, Unverified 09/28/24 12:09) UNKNOWN latex [LATEX] Allergy (Unknown, Unverified 09/28/24 12:09) UNKNOWN Do you need a note to return to daycare/school/sports/work: Yes HPI HPI Comments History of Present Illness Details History of Present Illness - The patient is a 34-year-old female pr esenting with symptoms of ear pain, congestion, and cough. - Her symptoms are thought to have begun after her 4-year-old child experienced fever associated with an ear infection on Thursday. - She started experiencing symptoms the day after her child fell ill, including congestion, runny nose, ear pain, throat irritation, and productive cough particularly noted in the mornings. - Ear pain is associated with coughing, and examination suggested redness and potential ear infection. - She has been self-treating with Tyleno l, denies sinus pain, and is approximat gwynn 3-4 weeks . - She is having a medical on . - She denies fever, chills, CP, SOB, abd pain, n/v/d, dizziness, weakness, or travel. Physical Exam General: Cooperative, healthy appearing, comfortable, no acute distress and well developed Head: Normal to inspection. No sinus tenderness noted. Ears: Hearing grossly normal bilaterally. Ear canals clear with no erythema n oted. TM on the left is normal, not bulging. Right TM is bulging and erythematous. No tragus tenderness noted. Nose: Normal external nose present, moist mucosa, normal turbinates. Face and sinus: Normal facial exam, no sinus tenderness noted. Neck: Normal visual inspection and Yes full ROM. No lymphadenopathy noted. Respiratory: Normal respiratory effort and able to speak in complete sentences. Clear to auscultation bilaterally Cardiovascular: Regular rate and rhythm. Normal S1 and S2 GI: Normal to inspection. Soft to palpation and nontender. No guarding noted. Skin: No rashes or lesions noted Patient was informed and verbally consented to the use of an ambient scribe for clinic note documentation during this visit. [facility] Medical History (Updated 08/09/24 @ 09:57 by Dang Leone PA-C) Panic attacks Depression Anxiety Eczema GERD (gastroesophageal reflux disease) Arthritis Surgical History Hx of tonsillectomy Family History (System 07/06/24 @ 12:41 by Yaquelin Irizarry) Father HTN (hypertension) Paternal Grandmother Diabetes Cardiovascular disease Clotting disorder HTN (hypertension) Social History (System 07/06/24 @ 12:41 by Yaquelin Irizarry) Housing: [facility] Patient Tobacco Use Status: Current everyday Tobacco user Cigarettes Per Day: 7 Years Smoked: 16 e-Cigarette/Vaping Use: Never Used Second Hand Smoke Exposure: No service: No 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 occupational status: employed 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 Current occupational exposures/hazards: No Cognitive needs: No Hearing needs: No Vision needs: No Review of Systems Const All systems reviewed & are unremarkable except as noted in HPI and below Physical Exam Vital Signs: Last Vital Signs Temp 98.2 F 09/28/24 12:06 Pulse 95 09/28/24 12:06 Resp 20 09/28/24 12:06 BP 122/78 09/28/24 12:06 Pulse Ox 98 09/28/24 12:06 Oxygen Delivery Method Room Air 09/28/24 12:06 BMI result Body Mass Index 39.1 Assessment & Plan Assessment & Plan (1) Otitis media: Code(s): H66.90 - Otitis media, unspecified, unspecified ear Qualifiers: Otitis media type: serous Chronicity: acute Laterality: right Recurrence: non-recurrent Qualified Code(s): H65.01 - Acute serous otitis media, right ear (2) Congestion of upper airway: Code(s): J98.8 - Other specified respiratory disorders Plan Most likely OM vs sinusitis vs URI vs covid vs flu Plan - Initiate treatment with nasal spray, decongestant, antibiotic, and cough medicine to manage symptoms of respiratory infection. - Continue symptomatic relief with Tylenol or Motrin and home remedies. - Monitor for changes or worsening of symptoms and adjust treatment as necessary. - Diet as tolerated. Drink lots of fluids. - Follow up with PCP. - Follow up with clinic regarding the on Thursday. Coding Level of Care Code Est Pt Level 3 (32971) Diagnoses Non-recurrent acute serous otitis media of right ear H65.01 Otitis media type: serous Chronicity: acute Laterality: right Recurrence: non-recurrent Congestion of upper airway J98.8
== END 2024-09-28 12:32 | disposition home or self-care (01) ==
PROVIDERS: PCP Family Medicine; Visit Provider Physician Assistant Medical
DX: H65.01 Acute serous otitis media, right ear (principal); J98.8 Other specified respiratory disorders

== ENCOUNTER → 2024-09-28 12:03 | Outpatient (BNVA) | payer OTHER, SELFPAY | PROVIDERS: PCP Family Medicine; Visit Provider Physician Assistant Medical | DX: H65.01 Acute serous otitis media, right ear (principal); J98.8 Other specified respiratory disorders | CPT/HCPCS: 99212 ==

== ENCOUNTER 2024-10-08 01:25 | Emergency (ER) | payer OTHER, SELFPAY ==
--- NOTE | 2024-10-08 | ECG_ITS ---
Test Reason : chest pain Blood Pressure : */* mmHG Vent. Rate : 99 BPM Atrial Rate : 99 BPM P-R Int : 160 ms QRS Dur : 84 ms QT Int : 342 ms P-R-T Axes : 54 63 32 degrees QTcB Int : 438 ms Normal sinus rhythm Normal ECG When compared with ECG of 27-Nov-2017 00:38, No significant change was found Referred By: Generic ED Physician Electronically Signed By: Roly Chappell
--- NOTE | ~2024-10-08 | XR_ITS ---
CLINICAL HISTORY: cough 1 view chest x-ray Comparison: None provided Findings: No consolidation or effusion. Normal size heart. No acute fracture. IMPRESSION: 1. No acute findings. This document has been electronically signed by: Annelise Karimi MD on 10/08/2024 03:59:16
[2024-10-08 01:26] VITALS: BP 146/78; PULSE 106; RESP 18; TEMP 36.9; O2SAT 98; BMI 40.9
[2024-10-08 02:32] LABS: MANUAL DIFF FLAG NO
[2024-10-08 02:33] LABS: Basophils Absolute Auto 0.1 X10*3/uL (0.0-0.2); Basophils Percent Auto 0.6 % (0-2); Eosinophils Absolute Auto 0.3 X10*3/uL (0.0-0.4); Eosinophils Percent Auto 3.4 % (0-4); Hematocrit 35.3 % (37.0-47.0); Hemoglobin 12.7 g/dl (12.0-16.0); Imm Gran Abs Auto 0.05 X10*3/uL (0.00-0.03); Imm Gran Pct Auto 0.5 % (0.0-0.4); Lymphocytes Absolute Auto 2.4 X10*3/uL (1.2-4.9); Lymphocytes Percent Auto 24.9 % (20-40); Mean Corpuscular Hemoglobin 30.6 pg (27.0-33.0); Mean Corpuscular Volume 85.1 fL (80.0-98.0); Mean Platelet Volume 12.3 fL (9.4-12.3); Monocytes Absolute Auto 0.6 X10*3/uL (0.1-1.2); Monocytes Percent Auto 6.5 % (2-11); Neutrophils Absolute Auto 6.2 x10*3/uL (2.0-8.3); Neutrophils Percent Auto 64.1 % (45-73); Platelet Count 205 X10*3/uL (160-400); Red Blood Count 4.15 X10*6/uL (4.20-5.50); Red Cell Distribution Width 12.5 % (11.0-16.0); White Blood Count 9.7 X10*3/uL (4.8-10.8)
--- NOTE | 2024-10-08 02:38 | ED_ITS ---
HPI - General Adult General Chief complaint: General Medical Stated complaint: nauseous Time Seen by Provider: 10/08/24 02:28 Source: patient Mode of arrival: ambulatory Limitations: no limitations History of Present Illness ED Provider: HPI narrative: Patient's history of anxiety and depression recent MTP week ago comes here for unable to sleep having chest pain back pain chills no fever no upper respiratory symptoms does have occasional cough only no urinary symptoms Related Data Previous Rx's ?Medication ?Instructions ?Recorded amoxicillin 875 mg-potassium 1 tab PO Q12H 10 days #20 tabs 09/28/24 clavulanate 125 mg tablet benzonatate 100 mg capsule 100 mg PO bid-tid PRN Cough 7 days 09/28/24 #21 caps cetirizine 5 mg-pseudoephedrine ER 1 tab PO BID 7 days #14 tabs 09/28/24 120 mg tablet,extended release,12hr fluticasone propionate 50 1 spray intranasal Q12H #16 grams 09/28/24 mcg/actuation nasal spray,suspension lorazepam 1 mg tablet (Ativan) 1 mg PO BEDTIME PRN anx iety/sleep 10/08/24 #10 tabs Allergies Allergy/AdvReac Type Severity Reaction Status Date / Time Sulfa (Sulfonamide Allergy Mild UNKNOWN Verified 10/08/24 01:30 Antibiotics) (SULFA (SULFONAMIDE ANTIBIOTICS)) latex (LATEX) Allergy Unknown UNKNOWN Verified 10/08/24 01:30 Review of Systems 2 Review of Systems: Yes all other systems are reviewed and are negative PMFSH Past Medical History Medical History Panic attacks Depression Anxiety Eczema GERD (gastroesophageal reflux disease) Arthritis Surgical History Hx of tonsillectomy Family History Family History Father HTN (hypertension) Paternal Grandmother Diabetes Cardiovascular disease Clotting disorder HTN (hypertension) Social History Social History 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 Oriented X3. No acute distress. anxious Eyes: PERRLA, No Nystagmus ENT: Pharynx normal. Oral Mucosa moist Neck: Normal inspection. Neck supple. CVS: Normal heart rate and rhythm. Pulses normal. Respiratory: No respiratory distress. Equal air entry bilateral, no wheezing/rales/rhonchi Abdomen: Soft and nontender. Bowel sounds are present, no mass palpable, no CVA tenderness Skin: Skin warm and dry. Normal skin color. Normal skin turgor. Extremities: No lower extremity edema. No calf tenderness Neuro: Oriented X 3. No motor deficit. No sensory deficit.No cerebellar signs , cranial nerves II-XII intact Medical Decision Making Lab Data MDM Lab Attestation statement: I reviewed the patient's lab results. 10/08/24 02:24 10/08/24 02:24 Labs: Lab Results 10/08/24 10/08/24 Range/Units 02:24 03:34 WBC 9.7 (4.8-10.8) X10*3/uL RBC 4.15 L (4.20-5.50) X10*6/uL Hgb 12.7 (12.0-16.0) g/dl Hct 35.3 L (37.0-47.0) % MCV 85.1 (80.0-98.0) fL MCH 30.6 (27.0-33.0) pg MCHC 36.0 H (31.0-35.0) g/dl RDW 12.5 (11.0-16.0) % Plt Count 205 (160-400) X10*3/uL MPV 12.3 (9.4-12.3) fL Immature Gran % (Auto) 0.5 H (0.0-0.4) % Neut % (Auto) 64.1 (45-73) % Lymph % (Auto) 24.9 (20-40) % [place] % (Auto) 6.5 (2-11) % Eos % (Auto) 3.4 (0-4) % Baso % (Auto) 0.6 (0-2) % Lymph # (Auto) 2.4 (1.2-4.9) X10*3/uL [place] # (Auto) 0.6 (0.1-1.2) X10*3/uL Eos # (Auto) 0.3 (0.0-0.4) X10*3/uL Baso # (Auto) 0.1 (0.0-0.2) X10*3/uL Abs Immat Gran (auto) 0.05 H (0.00-0.03) X10*3/uL Absolute Neuts (auto) 6.2 (2.0-8.3) x10*3/uL Absolute Nucleated RBC 0.000 (0.0-0.012) X10*3/uL Nucleated RBC % (auto) 0.0 (0.0-0.2) /100WBC PT 10.9 (10.9-12.4) SEC INR 1.0 (0.9-1.1) Sodium 140 (135-145) mmol/L Potassium 3.6 (3.3-5.1) mmol/L Chloride 106 (96-108) mmol/L Carbon Dioxide 24 (22-29) mmol/L Anion Gap 14 (12-20) BUN 12 (9-16) mg/dL Creatinine 0.65 (0.5-1.4) mg/dL Estim Creat Clear Calc 132.0 Estimated GFR > 60 Random Glucose 106 (60-115) mg/dL Calcium 9.3 (8.4-10.2) mg/dL Total Bilirubin 0.3 (0.0-1.0) mg/dL AST 27 (5-31) U/L ALT 37 H (0-31) U/L Alkaline Phosphatase 50 (39-117) U/L Troponin I High Sens < 2.7 (<3.5-17.0) ng/L Total Protein 6.8 (6.5-8.0) g/dL Albumin 4.3 (3.5-5.0) g/dL Beta HCG, Quant 349 mIU/mL Urine Color Yellow Urine Appearance Clear Urine pH 6.5 (5.0-9.0) Ur Specific [place] <= 1.005 (1.005-1.025) Urine Protein Negative (Neg-Trace) mg/dL Urine Glucose (UA) Negative (Negative) mg/dL Urine Ketones Negative (Negative) mg/dL Urine Blood Trace H (Negative) Urine Nitrite Negative (Negative) Ur Leukocyte Esterase Small (1+) H (Negative) Urine RBC 0-2 (0-2) /HPF Urine WBC 6-10 H (0-5) /HPF Ur Squamous Epith Cells 6-10 (0-2) /HPF Urine Bacteria None Seen (None Seen) Hyaline Casts 0-2 (0-2) /LPF Influenza Type A (PCR) NEGATIVE (Negative) Influenza Type B (PCR) NEGATIVE (Negative) RSV RNA Qual (PCR) NEGATIVE (Negative) SARS-CoV-2 RNA (RT-PCR) NEGATIVE (Negative) Independent Interpretation I performed an independent interpretation of an: EKG Interpretation: Normal sinus rhythm heart rate 99 beats per minute normal intervals normal axis no acute STT wave changes no acute ischemia impression normal EKG Radiology Impression Discussion of test interpretation with radiology: I have reviewed the radiologist's reading. Discharge Plan Discharge Clinical Impression: Anxiety Patient Disposition: Home, Self-Care Instructions: Anxiety (ED) Additional Instructions: Take medication for sleep and anxiety as prescribed Follow up with your PCP Prescriptions: New lorazepam [Ativan] 1 mg tablet 1 mg PO BEDTIME PRN (Reason: anxiety/sleep) Qty: 10 0RF No Action amoxicillin-pot clavulanate 875-125 mg tablet 1 tab PO Q12H 10 Days Qty: 20 0RF cetirizine-pseudoephedrine 5-120 mg tablet extended release 12 hr 1 tab PO BID 7 Days Qty: 14 0RF benzonatate 100 mg capsule 100 mg PO bid-tid PRN (Reason: Cough) 7 Days Qty: 21 0RF fluticasone propionate 50 mcg/actuation spray,suspension 1 spray intranasal Q12H Qty: 16 0RF Rx Instructions: administer into each nostril Print Language: Croatian
[2024-10-08 02:51] LABS: Alanine Aminotransferase 37 U/L (0-31); Albumin Level 4.3 g/dL (3.5-5.0); Alkaline Phosphatase 50 U/L (39-117); Anion Gap 14 (12-20); Aspartate Amino Transferase 27 U/L (5-31); Bilirubin Total 0.3 mg/dL (0.0-1.0); Blood Urea Nitrogen 12 mg/dL (9-16); Calcium 9.3 mg/dL (8.4-10.2); Carbon Dioxide 24 mmol/L (22-29); Chloride 106 mmol/L (96-108); Estimated Glomerular Filt Rate > 60; Glucose Random 106 mg/dL (60-115); Potassium 3.6 mmol/L (3.3-5.1); Sodium 140 mmol/L (135-145); Total Protein 6.8 g/dL (6.5-8.0)
[2024-10-08 02:57] LABS: HCG Quantitative 349 mIU/mL
[2024-10-08 03:04] LABS: Prothrombin Time 10.9 SEC (10.9-12.4)
[2024-10-08 03:10] LABS: Influenza A PCR NEGATIVE (Negative); Influenza B PCR NEGATIVE (Negative); Resp Syncy Virus RNA Qual PCR NEGATIVE (Negative); SARS COV2 PCR INHOUSE NEGATIVE (Negative)
[2024-10-08 03:12] LABS: Troponin-I High Sensitivity < 2.7 ng/L (<3.5-17.0)
[2024-10-08 03:42] LABS: Appearance Urine Clear; Color Urine Yellow; Glucose Urine UA Negative (Negative); Leukocyte Esterase Urine Small (1+) (Negative); Nitrite Urine Negative (Negative); PH 6.5 (5.0-9.0); Specific Gravity - Urine <= 1.005 (1.005-1.025); UMIC TRIGGER UACC YES; Urine Blood Trace (Negative); Urine Ketones Negative (Negative); Urine Protein Negative (Neg-Trace)
[2024-10-08 03:51] LABS: Bacteria Urine None Seen (None Seen); Hyaline Casts Urine 0-2 /LPF (0-2); RBC Urine 0-2 /HPF (0-2); UACC Culture Trigger YES
[2024-10-08 04:16] VITALS: BP 123/71; PULSE 88; RESP 16; TEMP 36.9; O2SAT 98
[2024-10-08 04:21] VITALS: BP 123/71; PULSE 88; RESP 16; TEMP 36.9; O2SAT 98
== END 2024-10-08 04:21 | disposition home or self-care (01) ==
PROVIDERS: Emergency Provider Internal Medicine; PCP Family Medicine
DX: F41.9 Anxiety disorder, unspecified (principal); R05.9 Cough, unspecified; Z03.818 Encounter for observation for suspected exposure to other biological agents ruled out; F17.210 Nicotine dependence, cigarettes, uncomplicated
CPT/HCPCS: 0241U; 36415; 71045; 80053; 81001; 84484; 84702; 85025; 85610; 87086; 93005; 99283; 99284

== ENCOUNTER → 2024-10-08 02:30 | Outpatient (BNV) | payer OTHER, SELFPAY | PROVIDERS: Emergency Provider Internal Medicine; PCP Family Medicine; Visit Provider Internal Medicine Cardiovascular Disease | DX: R07.9 Chest pain, unspecified (principal) | CPT/HCPCS: 93010 ==

== ENCOUNTER → 2024-10-08 02:45 | Outpatient (BNV) | payer OTHER, SELFPAY | PROVIDERS: Emergency Provider Internal Medicine; PCP Family Medicine; Visit Provider Radiology Diagnostic Radiology | DX: R05.9 Cough, unspecified (principal) | CPT/HCPCS: 71045 ==

== ENCOUNTER 2024-11-01 09:34 | Outpatient (AMB) | payer OTHER, SELFPAY ==
[2024-11-01 09:56] VITALS: BP 132/86; PULSE 87; TEMP 36.8; O2SAT 97; BMI 39.9
--- NOTE | 2024-11-01 09:56 | AM.OFFWIN_ITS ---
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 Is last menstrual period known: Yes Post menopausal: No Patient : No Allergies Sulfa (Sulfonamide Antibiotics) (SULFA (SULFONAMIDE ANTIBIOTICS)) Allergy (Mild, Verified 11/01/24 10:01) UNKNOWN latex (LATEX) Allergy (Unknown, Verified 11/01/24 10:01) UNKNOWN Do you need a note to return to daycare/school/sports/work: No HPI HPI Comments History of Present Illness Details Patient is a 34yo F who presents to office with L ear pain/swollen LN in L side of neck Was small a few days ago and has increased in size Associated L sided throat and ear pain She rates it at a 3/[address] lump 7/10 Worse when turning head No fever or chills No medicine or things tried for it Minima cough, no SOB or CP No fatigue or body aches PFSH Medical History Panic attacks Depression Anxiety Eczema GERD (gastroesophageal reflux disease) Arthritis Surgical History Hx of tonsillectomy Family History Father HTN (hypertension) Paternal Grandmother Diabetes Cardiovascular disease Clotting disorder HTN (hypertension) Social History Housing: Condominium Patient Tobacco Use Status: Current everyday Tobacco user Cigarettes Per Day: 7 Years Smoked: 16 e-Cigarette/Vaping Use: Never Used Second Hand Smoke Exposure: No Patient : No service: No 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 occupational status: employed 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 Current occupational exposures/hazards: No Cognitive needs: No Hearing needs: No Vision needs: No Review of Systems Const Denies body aches, Denies chills, Denies fatigue and Denies fever(s) Eyes Denies change in vision ENT Reports otalgia, Denies facial pain, Denies mouth lesions, Denies mouth pain (denies dental trauma), Reports nasal congestion, Reports neck pain (swelling L side), Denies sinus pain, Reports sore throat, Denies throat swelling and Denies tongue swelling Card Denies chest pain, Denies syncope and Denies dyspnea Resp Reports cough and Denies dyspnea GI Denies vomiting Musc Reports neck pain (swelling L side) Skin/Breast Reports skin swelling (L side neck) Neuro Denies syncope Endo Denies fatigue Aller/Immun Denies throat swelling and Denies tongue swelling Physical Exam Vital Signs: Last Vital Signs Temp 98.3 F 11/01/24 09:56 Pulse 87 11/01/24 09:56 BP 132/86 11/01/24 09:56 Pulse Ox 97 11/01/24 09:56 Oxygen Delivery Method Room Air 11/01/24 09:56 BMI result Body Mass Index 39.9 General: Non-toxic, NAD. Speaking full sentences. Skin: Warm dry throughout Eye: EOMI, PERRL Neck/Lymph: + edematous palpable slightly tender L mid anterior cervicle LN. No lymphadenopathy noted to bilateral preauricular, post auricular, tonsillar, submental, submandibuclar, occipital, posterior cerv chain or L infra/supraclavicular region HENT: Airway patent. Uvula midline. No pharyngeal erythema or edema. No CLINICAL PRACTITIONER. No dental caries or perigingival abscess noted, Bilateral canals clear. TM non-erythematous, non-bulging. No TM perforation or hemotympanum noted. Respiratory: CTA bilaterally. No wheezes, rales or rhonchi Cardiac: RRR. No murmur MSK: Full ROM extremities. Neurology: Alert. No aphasia or facial droop. Gait without abnormality Psych: Good mood and affect Results AMB Rapid Strep AMB Rapid Strep Negative Last Edit by Praveena Baker MA on 11/01/24 10:23 Assessment & Plan Assessment & Plan (1) Lymphadenopathy, anterior cervical: Code(s): R59.0 - Localized enlarged lymph nodes Plan: Patient seen and evaluated. Strep negative No other s/s consistent with mono No sign of cellulitis or necrotic LN on exam ML due to URI Discussed warm compress Naproxen prn DIscussed monitoring s/s and when to seek re-evaluation or if symptoms persist x 3 weeks Patient gave verbal understanding and had no additional questions or concerns at time of discharge All questions answered Orders: Orders AMB Rapid Strep Screen Today Z13.9 - Encounter for screening, unspecified Coding Level of Care Code Est Pt Level 3 (90007) Diagnoses Lymphadenopathy, anterior cervical R59.0
--- OUTSIDE RECORDS SUMMARY | 2024-11-01 10:11 | XMS_ITS | Clinical Summary ---
Author Organization [address] [place] [address] Address [address] [place] [address] Phone Care Team Providers Care Senior Design Engineering Specialist Name Role Phone Chris Lindsey MD Primary [...] Influencers of Health Screening 04/04/2024 Influenza Vaccine (#1) 2024 HIB Vaccines Aged Out No longer [...] 5 Years) and At-Risk Patients (6 to 49 Years) Aged Out No longer eligible b ased on patient's age to complete this topic RSV Immunization Patients Un thomas 20 months Aged Out No longer eligible b ased on patient's age to complete this topic Varicella Vaccines Aged Out No longer eligible based on patient's age to complete this topic Insurance PLAN Care Teams Senior Design Engineering Specialist Relationship Specialty Start Date End Date Chris Lindsey MD [address] [place] [address] Dr Coleen [place] PCP - General Family Medicine 04/04/24
--- OUTSIDE RECORDS SUMMARY | 2024-11-01 10:11 | XMS_ITS | Data Portability ---
Author Organization [facility] [address] Address [address] [place] [address] Assessment No assessment recorded. Plan of Treatment Reminders Order Date Submit Date Provider Last Modified By Organization Details Last Modified Time Details Appointments None recorded. Lab rapid strep group A, throat 2022 023 [email or web address] 247 _[facility], [address] [place] [address], [phone], 3 11:42:27 streptococc us group A, culture, throat 2022 023 C[facility], [address] [place] [address], [place], [address], 3 08:09:20 rapid strep group A, throat 2022 023 [email or web address] [facility], [address] [place] [address], [phone], 3 12:35:14 Referral None recorded. Procedures None recorded. Surgeries None recorded. Imaging None recorded. Medication Orders prednisone 20 mg tablet 2022 023 [id number], [address] [place] [address], [id number], 3 11:44:14 prednisone 10 mg tablet 2022 023 [email or web address] [facility], [address] [place] [address], [id number], 3 10:34:21 ProAir HFA 90 mcg/actuati on aerosol inhaler 2022 023 [facility] #[facility]7580, [address] [facility] [place], [place], [id number], 3 12:35:28 amoxicillin 500 mg capsule 2022 023 [facility] #[facility]661, [address] [facility] [place], [place], [id number], 3 10:34:26 Patient TargetsNo targets recorded. Patient Instructions Encounter Date Encounter Id Patient Instructions Last Modified By Organization Details Last Modified Time 05/27/2022 [id number] Acute bronchitis is a common clinical condition [...] Pain 3. Wheezing 4. Coughing up Blood [email or web address] Not available 05/27/2022 12:35:13 09/28/2022 [id number] sore throat: car e instructions [email or web address] Not available 09/28/2022 11:42:28 Reason for Referral None Reported. Results Created Date Observation Date Name Description Value Unit Range Abnormal Flag Note LastModifiedBy Organization Detail LastModifiedTime 05/27/1905/27/2022 rapid strep group A, throa t Unknown Analyte Normal = Negati ve Not Available [address] [place] [address], [phone], 05/27/2022 12:09:08 05/27/1905/27/2022 rapid strep group A, throa t Unknown Analyte negati ve Not Available [address] [place] [address], [phone], 05/27/2022 12:09:08 09/29/1910/01/2022 BETA STREP GP A CULTU RE beta strep gp A culture NEGATI VE Refer ence Range : Negat connor Not Available [facility] ([facility]) [address] [facility], [place], [address], 10/01/2022 08:09:19 09/29/1909/28/2022 rapid strep group A, throa t Unknown Analyte negati ve Not Available [address] [place] [address], [phone], 09/28/2022 10:35:09 09/29/1909/28/2022 rapid strep group A, throa t Unknown Analyte Normal = Negati ve Not Available [address] [place] [address], [phone], 09/28/2022 10:35:09 Result Notes None recorded. Problems Name Problem SNOMED Code Status Onset Date Resolution Date Notes Provider Name and Address Organization Details Recorded Time Gastroesophage al reflux disease 032792854 Active 2022 Y[facility]IE [facility] 3 12:11:29 Problem Notes None recorded. Medical Equipment None Reported. Allergies Allergen ID Allergen Name Allergen Category Reaction Reaction Severity Criticality Documentation Date Start Date Code Code System Note Provider Name and Address Organization Details Recorded Time 113617 Substance with sulfonami de structure and antibacte rial mechanism of action (substanc e) medicatio n Not available Not available Not available 05/27/2022 53586 8003 SNOMED unkno wn react ion YOLIE [facility] 3 12:10:08 253699 latex environme nt,medica tion rash Not available Not available 05/27/2022 63172 91 RxNorm YOLIE Adler [facility] 3 12:10:19 Medications Name Sig Start [...] completed Not Available Not Available Not Available [employer] COVID-19 Ag Self Test kit TEST DIRECTED TODAY 05/27 completed Not Available Not Available Not Available Vitals Date Recorded Body height Body mass index (BMI) Body weight Respiratory rate Oxygen saturation Oxygen saturation in Arterial blood by Pulse oximetry Heart rate Body temperature Systolic And Diastolic Provider Name and Address Organization Details Last Updated DateTime 3 152.4 cm 40 kg/m2 59981.4 4 g 20 /min 97 % 97 % 98 /min 97.5 [degF] 135/73 mm[Hg] RUBI CASEY [email or web address] 3 12:14:09 Date Recorded Body height Body mass index (BMI) Body weight Respiratory rate Oxygen saturation Oxygen saturation in Arterial blood by Pulse oximetry Heart rate Body temperature Systolic And Diastolic Provider Name and Address Organization Details Last Updated DateTime 3 152.4 cm 39.1 kg/m2 00302.4 7 g 17 /min 100 % 100 % 78 /min 98.3 [degF] 129/86 mm[Hg] RUBI URBANO [facility] 3 10:36:40 Social History Question Answer Notes LastModified by [employer] Details LastModified Time Tobacco Smoking Status Current Every Day Smoker RUBI macdonald PA [facility] 05/27/2022 12:11:55 Which Illicit Or Recreational Drugs Have You Used? Marijuana [email or web address] Information not available 09/28/2022 How Much Tobacco Do You Smoke? 0.25 PPD [email or web address] Information not available 05/27/2022 Have You Recently Traveled Abroad? No Information not available 05/27/2022 Sex: Unknown Functional Status Question Answer Note LastModified by [employer] Details LastModified Time Do you use any illicit or recreational drugs? Yes Information not available 09/28/2022 Do you or have you ever used any other forms of tobacco or nicotine? No Information not available 05/27/2022 What is your level of alcohol consumption? None Information not available 05/27/2022 Mental Status None recorded. Family History Relationship Description Onset Age of this Age Resolved Age Notes LastModified by Organization Details LastModified Time Father No current problems or disability [email or web address] Not available 05/27 12:11:31 Mother No current problems or disability [email or web address] Not available 05/27 12:11:31 Medical History No medical history recorded. Gynecological History Statement/Question Response Date of LMP Is there any chance of ? No Obstetrics History GPAL:G 0 P 0 0 0 0 Past Encounters Encounter ID Performer Location Encounter Start Date Encounter Closed Date Diagnosis/Indication Diagnosis SNOMED-CT Code Diagnosis ICD10 Code Diagnosis Note [id number] [facility] [address] [address] 04/03/2021 14:32:32 04/03/2021 16:49:30 [id number] [address] [facility] [address] [address] 10/01/2021 13:00:01 10/01/2021 16:46:34 [id number] [address] [place] [address] 09/20/2020 18:06:16 09/20/2020 19:49:44 [id number] [address] [facility] [address] [place] [address] 04/20/2021 13:01:43 04/20/2021 14:17:30 [id number] [place] [address] 09/28/2020 09:25:23 09/28/2020 10:50:45 [id number] [place] [address] 07/10/2020 18:01:41 07/10/2020 18:42:10 [id number] [address] [facility] [address] [place] [address] 01/14/2021 08:13:15 01/14/2021 09:49:55 [id number] YOLIE GUADALUPE [address] [place] [address] 05/27/2022 12:03:04 05/27/2022 12:37:33 Acute pharyngitis 688219546 J02.9 Laryngitis 53012409 J04. 0 Wheezing 42304008 R06.2 [id number] ANAYA CARLSON MD [address] [place] [address] 09/28/2022 09:31:53 09/28/2022 11:49:39 Sore throat 660321700 J02.9 Sore throatClea r liquids for comfortFre sh Carla Root Tea-Cut up fresh carla root and boil it till fragrant. drink the liquid as a tea. Can add Honey to taste. Also For Sore Throat:Thr oat Comfort Tea (by [employer]ogi [employer])Thro at Coat Tea ( by [employer] ) Clear broth soup: Vegetable, Chicken or Beef as tolerated. Salt Water GarglesMix 1 teaspoonfu l of salt in a glass of warm water. Gargle and spit out the salt water mixture one mouthful at a time until the glass is empty. Repeat 4 times daily. Acute laryngitis 8735396 J04.0 Health Concerns Section Related Observation LastModified by Organization Detai ls LastModified Time None Recorded Concern Status LastModified by Organization Details LastModified Time None Recorded Advance Directives Directive None Recorded Payers Insurance Date Sequence Insurance Name Policy Number Policy [place] Covered Member ID [place] Member ID Guarantor Name 10/07/2022 1 [facility] [id number] Hannah Douglass [id number] Hannah Douglass 08/06/2022 1 [facility] [id number] Hannah Douglass [id number] [facility] Notes Date Note Type Note Provider Name [...] pain. YOLIE GUADALUPE [address] [place], [address], [place] [facility] 05/27/2022 12:47:52 3 text/html 32 yo female presents with 4day hx of sore throat with no relief from ibuprofen, She has 4 sons ages 9y, 8y, 2y, and 2mos old. All with various stages of URIs over the last 2 months. None testing positive for Strep recently. ANAYA CARLSON MD [address] [place], [address], [place] [facility] 10/07/2022 19:17:50 OBGyn Episode No OBEpisode recorded.
== END 2024-11-01 11:28 | disposition home or self-care (01) ==
PROVIDERS: PCP Family Medicine; Visit Provider Physician Assistant
DX: R59.0 Localized enlarged lymph nodes (principal); Z13.9 Encounter for screening, unspecified

== ENCOUNTER → 2024-11-01 09:34 | Outpatient (BNVA) | payer OTHER, SELFPAY | PROVIDERS: PCP Family Medicine; Visit Provider Physician Assistant | DX: R59.0 Localized enlarged lymph nodes (principal) | CPT/HCPCS: 87880; 99212 ==

== ENCOUNTER 2024-12-02 08:30 | Outpatient (REF) | payer OTHER, SELFPAY ==
[2024-12-02 12:08] LABS: Chlamydia pneumoniae PCR Not Detected (Not Detect.); Coronavirus 229E PCR Not Detected (Not Detect.); Coronavirus HKU1 PCR Not Detected (Not Detect.); Coronavirus NL63 PCR Not Detected (Not Detect.); Coronavirus OC43 PCR Not Detected (Not Detect.); RSV PCR Not Detected (Not Detect.); Rhino/Enterovirus PCR Not Detected (Not Detect.)
[2024-12-02 12:25] LABS: Influenza A H1 PCR Not Detected (Not Detect.); Influenza A H1-2009 PCR Not Detected (Not Detect.); SARS-CoV-2 PCR Not Detected (Not Detect.)
[2024-12-02 12:26] LABS: Influenza A H3 PCR Not Detected (Not Detect.)
== END 2024-12-02 08:31 | disposition home or self-care (01) ==
LOC: HO.LAB 08:30
PROVIDERS: PCP Family Medicine; Visit Provider Physician Assistant
DX: J06.9 Acute upper respiratory infection, unspecified (principal); F17.210 Nicotine dependence, cigarettes, uncomplicated; J02.9 Acute pharyngitis, unspecified
CPT/HCPCS: 87633; 99212

== ENCOUNTER 2024-12-02 08:30 | Outpatient (AMB) | payer OTHER, SELFPAY ==
[2024-12-02 08:40] VITALS: BP 134/80; PULSE 104; TEMP 37.2; O2SAT 97; BMI 39.4
--- NOTE | 2024-12-02 08:40 | MHC.OFFWIV ---
Intake Vital Signs 12/02/24 08:40 Height 5 ft 1 in Weight 208 lb 8 oz BMI 39.4 BP 134/80 Blood Pressure Location Rt brachial Position Sitting Pulse 104 H Pulse Source Pulse Oximeter Temp 98.9 F Temp Source Oral Pulse Oximetry (%) 97 Oxygen Delivery Method Room Air Intake Visit Reasons: EP Throat and ear pain Patient Tobacco Use Status: Current everyday Tobacco user Allergies Sulfa (Sulfonamide Antibiotics) (SULFA (SULFONAMIDE ANTIBIOTICS)) Allergy (Mild, Verified 11/01/24 10:01) UNKNOWN latex (LATEX) Allergy (Unknown, Verified 11/01/24 10:01) UNKNOWN HPI HPI Comments History of Present Illness Details History - The patient is a 34-year-old female presenting with a sore throat and ear pain. - The sore throat began yesterday and is accompanied by mild congestion. - There is no history of fever or cough, and the patient denies any exposure to individuals with streptococcal infections. - Denies sinus pain or headaches. - The patient reports that her mother and sister recently returned from [place] and became ill shortly after, but they recovered without medical intervention or antibiotics. - The patient has no tonsils or uvula. 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 Physical Exam General: Cooperative, healthy appearing, comfortable and no acute distress Orientation/consciousness: Patient oriented x3 Limitations: No limitations Head: Normal to inspection Ears: Hearing grossly normal bilaterally, external ears normal and TM's normal bilaterally Nose: Normal external nose present, Normal nares present and No nasal discharge present Face and sinus: Normal facial exam and Yes sinuses nontender Mouth: Normal oral and palatal mucosa present and moist mucous membranes Throat: No tonsils present, no uvula. Posterior oropharynx erythema, no exudates Eyes: Appearance normal, both eyes and all related structures Neck: Normal visual inspection, full ROM, no lymphadenopathy Respiratory: Normal respiratory effort, able to speak in complete sentences, no respiratory distress, not tachypneic, no tripod positioning and no use of accessory muscles Skin: No rashes or lesions noted Neuro: Patient oriented x3 Extremities: Normal to inspection and Yes no clubbing, cyanosis or edema [facility] Medical History Panic attacks Depression Anxiety Eczema GERD (gastroesophageal reflux disease) Arthritis Surgical History Hx of tonsillectomy Family History Father HTN (hypertension) Paternal Grandmother Diabetes Cardiovascular disease Clotting disorder HTN (hypertension) [facility] Tobacco Use Status: Current everyday Tobacco user Cigarettes Per Day: 7 Years Smoked: 16 e-Cigarette/Vaping Use: Never Used Second Hand Smoke Exposure: No service: No Current occupational status: employed 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 Current occupational exposures/hazards: No Cognitive needs: No Hearing needs: No Vision needs: No Review of Systems Const All systems reviewed & are unremarkable except as noted in HPI and below Physical Exam Vital Signs: Last Vital Signs Temp 98.9 F 12/02/24 08:40 Pulse 104 H 12/02/24 08:40 BP 134/80 12/02/24 08:40 Pulse Ox 97 12/02/24 08:40 Oxygen Delivery Method Room Air 12/02/24 08:40 BMI result Body Mass Index 39.4 Assessment & Plan Assessment & Plan (1) Viral URI: Code(s): J06.9 - Acute upper respiratory infection, unspecified Plan: Plan - VSS, pt well appearing and PE unremarkable - Conduct viral testing to determine the presence of a viral infection. - If viral test results are negative, consider bacterial infection and prescribe antibiotics if necessary. - Recommend rest and hydration to aid recovery. - Suggest the use of Motrin 600 mg every six hours for throat pain management. 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 Patient was informed and verbally consented to the use of an ambient scribe for clinic note documentation during this visit Orders: Orders Resp Pathogen Panel - [facility] Today J06.9 - Acute upper respiratory infection, unspecified Coding Level of Care Code Est Pt Level 3 (58678) Diagnoses Viral URI J06.9
--- OUTSIDE RECORDS SUMMARY | 2024-12-02 08:40 | XMS_ITS | Clinical Summary ---
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
== END 2024-12-02 08:58 | disposition home or self-care (01) ==
PROVIDERS: PCP Family Medicine; Visit Provider Physician Assistant
DX: J06.9 Acute upper respiratory infection, unspecified (principal)

== ENCOUNTER 2025-03-27 08:52 | Outpatient (AMB) | payer OTHER, SELFPAY ==
--- NOTE | 2025-03-27 08:54 | A.OFFPC_ITS ---
Vital Signs 03/27/25 08:57 Height 5 ft 1 in Weight 214 lb 2 oz BMI 40.5 BP 132/72 Blood Pressure Location Lt brachial Position Sitting Respiration 13 Pulse 99 Pulse Source Pulse Oximeter Temp 97.7 F Temp Source Oral Pulse Oximetry (%) 99 Oxygen Delivery Method Room Air Intake Visit Reasons: [address] Stephen Intake Note: CPE Regulatory Affairs Coordinator Required: No Allergies Sulfa (Sulfonamide Antibiotics) (SULFA (SULFONAMIDE ANTIBIOTICS)) Allergy (Mild, Verified 03/27/25 08:55) UNKNOWN latex (LATEX) Allergy (Unknown, Verified 03/27/25 08:55) UNKNOWN Medication List - Last Reconciled 03/27/25 by Chris Lindsey MD azithromycin For 250 mg dose pack: take 500 mg today (day 1), then 250 mg for 4 days (days 2-5) PO cetirizine-pseudoephedrine 5-120 mg ER 1 tab PO BID 7 days fluticasone propionate 50 mcg/actuation 1 spray intranasal Q12H lorazepam (Ativan) 1 mg PO BEDTIME PRN naproxen 500 mg PO BID PRN Tobacco use date assessed: 03/27/25 Dental Screening Dental Screen Date: 03/27/25 Did you have a dental visit in the last 12 months?: Yes Did you have a dental problem in the last 6 months where you did not have access to dental care?: No Was dental information given to patient?: Patient has dentist HPI [address] Stephen HPI Details 34 y/o female presents for a CPE with f/ u labs and health maint. No recent labs to review. Reports anxiety/depression. PHQ-9 5, BHARTI-7 7 today. Does not have a therapist as she states she does not have much time for them. Does not see a dentist every 6 months. Reports acid reflux more than once a week. HPI Comments History of Present Illness Details Documentation assistance for Chris Lindsey MD, was provided by Wei Jordan, Train Planner on 03/27/2025 at 9:20 AM EST. I, Dr. Lindsey, have read, observed, and verified documentation. 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 1. Little interest or pleasure in doing things: not at all 2. Feeling down, depressed, or hopeless: several days 3. Trouble falling or staying asleep, or sleeping too much: several days 4. Feeling tired or having little energy: several days 5. Poor appetite or overeating: several days 6. Feeling bad about yourself - or that you are a failure or have let yourself or your family down: not at all 7. Trouble concentrating on things, such as reading the newspaper or watching television: several days 8. Moving or speaking so slowly that other people could have noticed. Or the opposite - being so fidgety or restless that you have been moving around a lot more than usual: not at all 9. Thoughts that you would be better off or of hurting yourself in some way: not at all Total score: 5 Depression Screening Interpretation: Positive Depression Screening Follow-up: Community Mental Health Worker F/U Depression Screening Done: Yes 95480 - PHQ-9 Billing: Yes Source: Developed by Drs. Ryan Deshpande, Lashay Jaime, Ray Guerrero and colleagues, with an educational ollie from [employer]. Thrive Questionnaire Date Thrive assessed: 03/27/25 I am a: Patient What is your living situation today?: I have a steady place to live Within the past 12 months, did the food you bought not last and you didn't have the money to get more?: Never true Within the past 12 months, did you worry whether your food would run out before you got money to buy more?: Never true Do you have trouble paying for medicines?: No Do you have trouble getting transportation to medical appointments?: No Do you have trouble paying your heating and electricity bill?: No Do you have trouble taking care of your child, family member or friend?: No Do you have trouble with day-to-day activities such as bathing, preparing meals, shopping, managing finances, etc.?: No Are you currently unemployed and looking for a job?: No Are you interested in more education?: No Please select the resources that you would like help with: None Currently or been in a relationship where the following occur: No concerns reported THRIVE Score: 0 AUDIT C Alcohol Use Questionnaire (AUDIT-C) 1. How often do you have a drink containing alcohol?: Monthly or less 2. How many drinks containing alcohol do you have on a typical day when you are drinking?: 3 or 4 3. How often do you have six or more drinks on one occasion?: Never Total Score: 2 BHARTI-7 AMB Questionnaire BHARTI-7 Date BHARTI - 7 assessed: 03/27/25 Feeling nervous, anxious, or on edge: 1 = Several days Not being able to stop or control worryin = Several days Worrying too much about different things: 1 = Several days Trouble relaxin = Several days Being so restless that it is hard to sit still: 1 = Several days Becoming easily annoyed or irritable: 1 = Several days Feeling afraid as if something awful might happen: 1 = Several days Total BHARTI-7 score (0-4 normal; 5-9 mild; 10-14 moderate; 15-21 severe): 7 Source: Developed by Drs. Ryan Deshpande, Lashay Jaime, Ray Guerrero and colleagues, with an educational ollie from [employer]. BHARTI-7 Assessment Billing BHARTI-7 Assessment Tool: BHARTI-7 Assessment 53774 Review of Systems Const Denies chills, Denies fatigue, Denies fever(s), Denies headache(s) and Denies weakness Eyes Denies change in vision ENT Denies dizziness, Denies headache(s), Denies hearing loss, Denies nasal congestion, Denies sinus pain, Denies sinus pressure and Denies sore throat Card Denies chest pain, Denies lightheadedness, Denies dyspnea and Denies other (palpitations) Resp Denies cough, Denies dyspnea and Denies wheezing GI Denies abdominal pain, Denies melena, Denies hematochezia, Denies change in bowel habits, Denies dyspepsia and Denies nausea Denies hematuria and Denies dysuria Musc Denies abnormal gait, Denies myalgias, Denies arthralgias, Denies numbness and Denies tingling Skin/Breast Denies rash, Denies unusual bruising and Denies wounds Neuro Denies abnormal gait, Denies dizziness, Denies headache(s), Denies memory loss, Denies numbness, Denies Sensory deficit (Neuro), Denies tingling and Denies weakness Psych Reports anxiety, Reports depression and Denies memory loss Endo Denies cold intolerance, Denies fatigue, Denies heat intolerance, Denies polydipsia and Denies polyuria Jose/Lymph Denies easy bleeding and Denies easy bruising Aller/Immun Denies wheezing Physical exam (Primary Care) Vital Signs: Last Vital Signs Temp 97.7 F 03/27/25 08:57 Pulse 99 03/27/25 08:57 Resp 13 03/27/25 08:57 BP 132/72 03/27/25 08:57 Pulse Ox 99 03/27/25 08:57 Oxygen Delivery Method Room Air 03/27/25 08:57 BMI result Body Mass Index 40.5 Tobacco/Smoking Status: Tobacco use Status Tobacco use date assessed 03/27/25 03/27/25 08:58 Patient Tobacco Use Status Current everyday Tobacco 03/27/25 08:58 e-Cigarette/Vaping Use Never Used 03/27/25 08:58 PHQ-9: PHQ-9 Score PHQ-9: Total score 5 03/27/25 09:15 Depression Screening Interpretation: Positive Depression Screening Follow-up: Community Mental Health Worker F/U Thrive Assessment: Date of Thrive Assessment Date Thrive assessed 03/27/25 03/27/25 08:58 Currently or been in a relationship where the following occur: No concerns reported Const General: no acute distress, well developed, alert and awake Nutritional Appearance: well nourished Orientation/consciousness: patient oriented x3 HENMT Head: Yes normocephalic and Yes atraumatic Ears: hearing grossly normal bilaterally and TM's normal bilaterally General nose exam: Normal external nose present and Normal nares present Mouth: Normal oral and palatal mucosa present and moist mucous membranes Teeth and gingiva: dentition normal Throat: Yes posterior oropharynx normal Eyes General: appearance normal, both eyes and all related structures Pupils: Equal, round and reactive pupils present and Pupil accommodation reflex normal EOM: EOMs intact bilaterally Neck Neck: Yes normal visual inspection, Yes no lymphadenopathy and Yes trachea midline Thyroid: Thyroid normal Carotids: no bruits Lymphatic: no lymphadenopathy noted Chest Chest palpation & inspection: normal inspection of the chest Resp Effort & Inspection: normal respiratory effort Auscultation: clear to auscultation bilaterally Cardio Rate: regular rate Rhythm: regular rhythm Heart sounds: S1 normal heart sound present, S2 normal heart sound present, no gallops, no murmurs and no rubs Bruits: no abdominal aortic bruits and no carotid bruits GI Palpation (GI): No Abdominal aortic bruit present, Soft to palpation, nontender, No hepatosplenomegaly present and No Rebound tenderness present Auscultation: normal bowel sounds General: Yes no CVA tenderness Back/Spine/Pelvis Back: no CVA tenderness Cervical Spine: cervical ROM normal and No Cervical spine tenderness Thoracic/Lumbar Spine: thoraco-lumbar ROM normal, No pain with thoraco-lumbar ROM, No thoracic spinal tenderness and No lumbar spinal tenderness Skin Lesions: no lesions Rashes: no rashes Trauma: no lacerations or abrasions Wounds: no wounds Nails: normal Neuro General: patient oriented x3 Cranial nerves: Yes Equal, round and reactive pupils present Cognition (Neuro): normal cognition Gait exam (Neuro): Normal gait present Motor exam (neuro): 5/5 motor strength present throughout Sensory Exam: No Sensory deficit (Neuro) Deep tendon reflexes (DTR's): Right patellar reflex intensity grade: 2+ and Left patellar reflex intensity grade: 2+ Extrem General: Yes normal to inspection and No edema Psych Appearance: grossly normal Affect: normal affect Attitude: cooperative Thought process: Normal thought process present Coding Level of Care Code Est Pt Level 3 (85525) Est Pt Prev Care 18-39y(66551) Diagnoses Adult general medical exam Z00.00 GERD (gastroesophageal reflux disease) K21.9 Anxiety with depression F41.8 Screening for cervical cancer Z12.4 Additional Codes BHARTI-7 Assessment Billing - BHARTI-7 Assessment Tool: BHARTI-7 Assessment 60989 ([id number]) PHQ-9 - 95134 - PHQ-9 Billing: Yes ([id number]) Assessment & Plan Assessment & Plan (1) Adult general medical exam: Code(s): Z00.00 - Encounter for general adult medical examination without abnormal findings Category: Medical Plan: 34-year-old female presents for complete physical exam Encouraged healthy diet with active lifestyle and plenty of exercise (2) GERD (gastroesophageal reflux disease): Code(s): K21.9 - Gastro-esophageal reflux disease without esophagitis Category: Medical Plan: Chronic GERD symptoms and she is having symptoms every day Trial omeprazole Referred to Gastroenterology (3) Anxiety with depression: Code(s): F41.8 - Other specified anxiety disorders Category: Medical Plan: Ongoing anxiety depression Patient agrees that she would benefit from therapy though she has difficulty with timing in children at home. Will ask the nurse navigator to help connect her with a therapist via telemedicine/video/phone (4) Screening for cervical cancer: Code(s): Z12.4 - Encounter for screening for malignant neoplasm of cervix Category: Medical Plan: Patient is up-to-date and has Pap smears with [facility] midwifer Orders: Orders Complete Blood Count Auto Diff Today Z00.00 - Encounter for general adult medical examination without abnormal findings Lipid Panel Today Z00.00 - Encounter for general adult medical examination without abnormal findings Microalbumin, Random (w Creat) Today I10 - Essential (primary) hypertension UA CC w/rflx Micro + Cult Today Z00.00 - Encounter for general adult medical examination without abnormal findings Comprehensive [place]. Panel Fast Today Z00.00 - Encounter for general adult medical examination without abnormal findings TSH reflex Free T4 Today Z00.00 - Encounter for general adult medical examination without abnormal findings Referrals Gastroenterology Referral K21.9 - Gastro-esophageal reflux disease without esophagitis Nurse Navigator Referral F41.8 - Other specified anxiety disorders Medications: New omeprazole 20 mg PO DAILY 30 caps 3RF 30 days
[2025-03-27 08:57] VITALS: BP 132/72; PULSE 99; RESP 13; TEMP 36.5; O2SAT 99; BMI 40.5
== END 2025-03-27 09:26 | disposition home or self-care (01) ==
LOC: HO.HMCFM 08:53
PROVIDERS: PCP Family Medicine; Visit Provider Family Medicine
DX: Z00.00 Encounter for general adult medical examination without abnormal findings (principal); K21.9 Gastro-esophageal reflux disease without esophagitis; F41.8 Other specified anxiety disorders

== ENCOUNTER → 2025-03-27 08:52 | Outpatient (BNVA) | payer OTHER, SELFPAY | PROVIDERS: PCP Family Medicine; Visit Provider Family Medicine | DX: Z00.00 Encounter for general adult medical examination without abnormal findings (principal); Z12.4 Encounter for screening for malignant neoplasm of cervix; K21.9 Gastro-esophageal reflux disease without esophagitis; F41.8 Other specified anxiety disorders | CPT/HCPCS: 96127; 99395 ==

== ENCOUNTER 2025-04-18 10:29 | Outpatient (REF) | payer OTHER, SELFPAY ==
[2025-04-18 13:44] LABS: MANUAL DIFF FLAG NO
[2025-04-18 13:58] LABS: Hematocrit 38.3 % (37.0-47.0); Hemoglobin 13.1 g/dl (12.0-16.0); Imm Gran Abs Auto 0.04 X10*3/uL (0.00-0.03); Imm Gran Pct Auto 0.4 % (0.0-0.4); Lymphocytes Absolute Auto 2.5 X10*3/uL (1.2-4.9); Mean Corpuscular HGB Conc 34.2 g/dl (31.0-35.0); Mean Corpuscular Hemoglobin 30.2 pg (27.0-33.0); Mean Corpuscular Volume 88.2 fL (80.0-98.0); NRBC Abs Auto 0.000 X10*3/uL (0.0-0.012); NRBC Pct Auto 0.0 /100WBC (0.0-0.2); Platelet Count 182 X10*3/uL (160-400); Red Blood Count 4.34 X10*6/uL (4.20-5.50); White Blood Count 11.3 X10*3/uL (4.8-10.8)
--- OUTSIDE RECORDS SUMMARY | 2025-04-18 14:02 | XMS_ITS | Clinical Summary ---
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 Name Role Phone Chris Lindsey MD Primary [...] Cervical Cancer Screening: P ap Smear 07/23/2012 HPV Vaccines (1 - 3-dose SCD M series) 07/23/2018 HIV Screening 04/04/2024 Hepatitis C Screening 04/04/2024 Social Influencers of Health Screening 04/04/2024 Depression Screening 04/20/2024 COVID-19 Vaccine ( - 2024-2 6 season) 2024 Influenza Vaccine (#1) 2024 RSV Immunization Adult Patie nts (1 - 1-dose 75+ series) 07/23/2066 HIB Vaccines Aged Out No longer eligi [...] complete this topic Insurance PLAN Care Teams Boat 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
[2025-04-18 14:17] LABS: Appearance Urine Turbid; Glucose Urine UA Negative (Negative); PH 5.5 (5.0-9.0); Specific Gravity - Urine 1.025 (1.005-1.025); UMIC TRIGGER UACC YES
[2025-04-18 14:41] LABS: UACC Culture Trigger YES
[2025-04-18 15:05] LABS: Alanine Aminotransferase 53 U/L (0-31); Albumin Level 4.1 g/dL (3.5-5.0); Alkaline Phosphatase 51 U/L (39-117); Anion Gap 10 (12-20); Aspartate Amino Transferase 37 U/L (5-31); Blood Urea Nitrogen 18 mg/dL (9-16); Calcium 8.7 mg/dL (8.4-10.2); Carbon Dioxide 26 mmol/L (22-29); Chloride 109 mmol/L (96-108); Cholesterol 138 mg/dL (<200); Estimated Glomerular Filt Rate > 60; HDL Cholesterol 33 mg/dL (>40); Potassium 4.3 mmol/L (3.3-5.1); Sodium 141 mmol/L (135-145); Total Protein 6.5 g/dL (6.5-8.0); Triglycerides 108 mg/dL (<150)
[2025-04-18 15:07] LABS: Microalbum/Creatinine Ratio Ur 5.2 ug/mg cr (<30)
== END 2025-04-18 10:30 ==
LOC: HO.HMGCLDS 10:29
PROVIDERS: PCP Family Medicine; Visit Provider Family Medicine
DX: Z00.00 Encounter for general adult medical examination without abnormal findings (principal)
CPT/HCPCS: 36415; 80053; 80061; 81001; 82043; 82570; 84443; 85025; 87086